=== PATIENT | male | born 1965 | race Caucasian/White ===

== ENCOUNTER 2019-04-15 18:46 | Emergency (ER) | payer MEDICAID, SELFPAY ==
[2019-04-15 18:47] VITALS: BP 134/79; PULSE 65; RESP 15; TEMP 36.8; O2SAT 97; BMI 35.2
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
--- NOTE | 2019-04-15 19:45 | RAD_ITS ---
STUDY: X-RAY - LUMBAR SPINE REASON FOR EXAM: Male, 54 years old. Back pain TECHNIQUE: 3 view(s) of the lumbar spine were obtained. COMPARISON: None FINDINGS: There is no evidence of fracture or dislocation in the lumbar spine. The vertebral body heights and disc spaces are well-maintained. Mild multilevel osteophytosis is present. RAD/Lumbar Spine 2 or 3 Views IMPRESSION: No fracture or dislocation in the lumbar spine. Mild multilevel osteophytosis. Electronically Signed: Oswaldo Ace, at 20:04 EDT Tel , Service support ,
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
[2019-04-15 21:00] VITALS: BP 139/76; PULSE 81; RESP 22; O2SAT 98
--- NOTE | 2019-04-15 21:01 | ED.RN ---
THIS NURSE REVIEWED D/C INSTRUCTIONS WITH PT. PT VERBALIZED UNDERSTANDING OF INSTRUCTIONS. PT DENIES FURTHER NEEDS OR QUESTIONS AT THIS TIME. PT AMBULATES FROM ROOM ON OWN WITHOUT ASSISTANCE FROM STAFF
== END 2019-04-15 21:02 | disposition home or self-care (01) ==
PROVIDERS: Emergency Provider Emergency Medicine; Family Provider Pediatrics; PCP Pediatrics
DX: S29.012A Strain of muscle and tendon of back wall of thorax, initial encounter (principal); S39.012A Strain of muscle, fascia and tendon of lower back, initial encounter; V43.52XA Car driver injured in collision with other type car in traffic accident, initial encounter; Y93.89 Activity, other specified; Y92.9 Unspecified place or not applicable; M62.830 Muscle spasm of back
CPT/HCPCS: 72070; 72100; 99282

== ENCOUNTER 2019-10-18 09:00 | Outpatient (RCR) | payer MEDICAID, SELFPAY ==
--- NOTE | 2019-08-18 12:21 | HP.PTEVAL ---
Patient's Visit Information MARCI BARR Jr. is a 54 year old M referred to Physical Therapy by COLTON MAYBERRY with a diagnosis of SPONDYLOSIS OF CERVICAL SPINE. Date of Evaluation: 08/18/19 Physical Therapist: Charbel Pena, PT, Cert MDT, OCS - Visit Plan Frequency: 2x /Week Duration: 4 Weeks Plan: PT INTERVENTIONS WITH AQUATIC PT FOR CERVICAL ROM/POSTURAL EX'S,STRENGTHENING. THEN RECHECK AFTER 3WEEKS - Subjective Findings: This 54 y/o male presents to physical therapy with cervical pain with radicular symptoms left arm.Patient has neck pain for several . Patient has been getting therapy at [facility] ,patient return to DR Braxton. wanted to try PT. Patient does workout at a facility. Patient has parathesia/tingling to 4-5th finger/thumb with pain located to shoulder and UT. Patient symptoms are intermmitant. Aggravating factors driving,sitting,,lifting,flexion. Alleviating factors ibuprofrin. Patient has occassional TOVAR ,denies tinntus/nausea/. Patient symptoms affects sleeping. Patient has no trauma. Patient MRI showed stenosis foraminal. Patient pain affects ADLS' ,housework tasks and job demands. Patient symptoms affects QOL. SOCAIL : single. VOCATION: sales - Pain Left Neck Pain Intensity (Out of 10): 8 Pain Intensity Range: 10 Left Scapula Pain Intensity (Out of 10): 0 Pain Intensity Range: 10 Left Shoulder Pain Intensity (Out of 10): 7 Pain Intensity Range: 10 - Objective POSTURE: mild foward posture. NEURO: c/o parathesia/tingling,left arm reflexes 2/3 C5-6-7 ,mytomes C5. PALAPTION: UT/levator. AROM: BUE WFL ,pain left shoulder. MMT: 4-/5 shoulders ,biceps/triceps/wrist 4/5. 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 Goal Time Frame: 2-4 Weeks Goal 3:: Patient to increase cervical ROM for function of recovery Goal Time Frame: 2-4 Weeks Goal 4:: Patient be d/c to prophalaxis Goal Time Frame: 2-4 Weeks Goal 5:: Patient to improve neck owestry score by 5 points or > to improve QOL. 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 Rehabilitation Potential: Good - Anticipated Interventions Patient/Client Instruction: Educate patient on: Condition, Plan of Care For the Purpose of:: To decrease pain, To increase ROM, To improve muscle performance and motor function, To increase tolerance to activity/condition/position, To improve ability of physical actions for home/community/work/leisure, To improve health of tissue, To decrease soft tissue restriction, To increase flexibility/ROM, To improve ability to perform tasks related to life management Therapeutic Exercise to Include: Strength training, Postural training, Flexibilty training, In an aquatic setting, Active ROM Comment: BUE For the Purpose of:: To decrease pain, To increase ROM, To improve muscle performance and motor function, To improve ability to perform ADL's, To increase tolerance to activity/condition/position, To improve ability of physical actions for home/community/work/leisure, To improve health of tissue, To decrease soft tissue restriction, To increase flexibility/ROM Thank you for the opportunity to evaluate your patient. For Medicare and Medicare HMO plans, please review the plan of care and approve it. It will need to be FAXED BACK to us at [phone] for Medicare purposes. For Medicare only, by signing this I certify the plan of care. Please let me know if there are questions or concerns regarding this plan of care. Physician Signature: Date:
--- NOTE | 2019-09-23 10:16 | HP.PTREVAL ---
COLTON MAYBERRY, It has been my pleasure to treat MARCI BARR Jr. over the last 8 visits for SPONDYLOSIS OF CERVICAL SPINE. Please see the progress note below for an update on the physical therapy plan of care! Subjective: Received order for cervical for land. Patient states pain same Objective/Function: POSTURE: mild foward posture. MMT:4/5. CERVICAL ROM: FLEXION MIN LOSS,EXTENSION MOD/SEVERE AND LATERAL FLEXION MOD/SEVER LOSS,ROTATION MOD LOSS Plan Plan: PT INTERVENTION MANUAL THERAY STM/MANUAL TRACTION,US,ICTX 15-23# X15 MIN ,CERVICAL /POSTURAL EXS Goals Goal 1:: Independant with HEP Goal Time Frame: 2-4 Weeks Goal 2:: Patient decrease cervical pain and radicular symptosm by 40% or > to improve function. Goal Time Frame: 2-4 Weeks Goal 3:: Patient to increase cervical ROM for function of recovery Goal Time Frame: 2-4 Weeks Goal 4:: Patient be d/c to prophalaxis Goal Time Frame: 2-4 Weeks Goal 5:: Patient to improve neck owestry score by 5 points or > to improve QOL. Goal Time Frame: 2-4 Weeks Anticipated Interventions Patient/Client Instruction: Educate patient on: Condition, Plan of Care For the Purpose of:: To decrease pain, To increase ROM, To improve muscle performance and motor function, To increase tolerance to activity/condition/position, To improve ability of physical actions for home/community/work/leisure, To improve health of tissue, To decrease soft tissue restriction, To increase flexibility/ROM, To improve ability to perform tasks related to life management Therapeutic Exercise to Include: Strength training, Postural training, Flexibilty training, In an aquatic setting, Active ROM Comment: DURAN GARCIA For the Purpose of:: To decrease pain, To increase ROM, To improve muscle performance and motor function, To improve ability to perform ADL's, To increase tolerance to activity/condition/position, To improve ability of physical actions for home/community/work/leisure, To improve health of tissue, To decrease soft tissue restriction, To increase flexibility/ROM, To improve ability to perform tasks related to life management Manual Therapy Techniques to Include: Mobilization, Soft tissue mobilization Comment: CERVICAL /MANUAL TRACTION For the Purpose of:: To decrease pain, To increase ROM, To improve nutrient delivery to tissue, To improve muscle performance and motor function, To improve health of tissue, To decrease soft tissue restriction TENS: Yes IF ES: Yes Ultrasound (thermal/non thermal): Yes Intermittent cervical traction: Yes For the Purpose of:: To decrease pain, To increase ROM, To improve health of tissue, To decrease soft tissue restriction Please do not hesitate to contact me at [phone] by phone or if you have questions or concerns regarding this new plan of care! Sincerely, Charbel Pena, PT, Cert MDT, OCS
--- NOTE | 2020-01-06 09:26 | HP.PT.NRP ---
MARCI BARR Jr. was seen in my office for initial evaluation on 08/18/19. The following Plan of Care was established for this patient: Initial Frequency: 2x /Week Initial Duration: 4 Weeks Patient/Client Instruction: Educate patient on: Condition, Plan of Care For the Purpose of:: To decrease pain, To increase ROM, To improve muscle performance and motor function, To increase tolerance to activity/condition/position, To improve ability of physical actions for home/community/work/leisure, To improve health of tissue, To decrease soft tissue restriction, To increase flexibility/ROM, To improve ability to perform tasks related to life management Therapeutic Exercise to Include: Strength training, Postural training, Flexibilty training, In an aquatic setting, Active ROM For the Purpose of:: To decrease pain, To increase ROM, To improve muscle performance and motor function, To improve ability to perform ADL's, To increase tolerance to activity/condition/position, To improve ability of physical actions for home/community/work/leisure, To improve health of tissue, To decrease soft tissue restriction, To increase flexibility/ROM, To improve ability to perform tasks related to life management Manual Therapy Techniques to Include: Mobilization, Soft tissue mobilization Comment: CERVICAL /MANUAL TRACTION For the Purpose of:: To decrease pain, To increase ROM, To improve nutrient delivery to tissue, To improve muscle performance and motor function, To improve health of tissue, To decrease soft tissue restriction TENS: Yes IF ES: Yes Ultrasound (thermal/non thermal): Yes Intermittent cervical traction: Yes For the Purpose of:: To decrease pain, To increase ROM, To improve health of tissue, To decrease soft tissue restriction This patient was last seen in our office 10/18/19. Pertinent comments regarding their Physical therapy will appear below: Patient seen for neck pain intailly aquatic therapy then did Ictx with + response with less pain in cervical and arm. At this point I will be discontinuing this patient from physical therapy. I would be happy to see this patient again in the future if found appropriate by the physician. Thank you! Charbel Pena, PT, Cert MDT, OCS
== END 2019-10-18 19:00 | disposition home or self-care (01) ==
LOC: PT 09:00
PROVIDERS: Family Provider Family Medicine; PCP Family Medicine
DX: M43.02 Spondylolysis, cervical region (principal)
CPT/HCPCS: 97012; 97110; 97113; 97140; 97162; 97530

== ENCOUNTER 2021-01-03 15:47 | Outpatient (RCR) | payer MEDICAID, SELFPAY ==
[2021-01-03] MEDS: COVID-19 VACC, MRNA(PFIZER)/PF 30 MCG/0.3 ML SYRINGE IM (14:05)
[2021-01-24] MEDS: COVID-19 VACC, MRNA(PFIZER)/PF 30 MCG/0.3 ML SYRINGE IM (13:52)
== END 2021-01-03 23:59 ==
LOC: IMMUN 15:47
PROVIDERS: PCP Family Medicine; Visit Provider Family Medicine
DX: Z23 Encounter for immunization (principal)
CPT/HCPCS: 0001A; 0002A; 91300

== ENCOUNTER → 2021-09-09 18:39 | Outpatient (CLI) | payer MEDICAID, SELFPAY ==
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
== END ==
PROVIDERS: PCP Family Medicine; Visit Provider Family Medicine
DX: Z12.2 Encounter for screening for malignant neoplasm of respiratory organs (principal); Z87.891 Personal history of nicotine dependence
CPT/HCPCS: 71271

== ENCOUNTER 2024-06-01 07:30 | Emergency (ER) | payer MEDICAID, SELFPAY ==
[2024-06-01 07:31] VITALS: BP 192/91; PULSE 67; RESP 19; TEMP 35.9; O2SAT 99; BMI 39.8
--- NOTE | 2024-06-01 07:59 | EX.ED.DYSGE1 ---
HPI History of Present Illness Chief Complaint: Abd Pain PFSH PFSH Home Medications ?Medication ?Instructions ?Recorded ?Last Taken ?Type cyclobenzaprine 10 mg tablet 10 mg PO TID PRN Muscle Spasm #20 04/15/19 Unknown Rx tabs naproxen 500 mg tablet 500 mg PO BID PRN PRN Pain #20 tabs 04/15/19 Unknown Rx ondansetron 4 mg disintegrating 4 mg PO Q8H PRN PRN Nausea #10 tabs 06/01/24 Unknown Rx tablet oxycodone 5 mg tablet 5 mg PO Q6H PRN pain 3 days #12 06/01/24 Unknown Rx tabs Allergy/AdvReac Type Severity Reaction Status Date / Time No Known Allergies Allergy Verified 06/16/19 15:31 Social History (System 06/16/19 @ 15:31 by Rosa Alegre) Smoking Status: Former smoker EXAM Physical Exam Const Vital Signs: 06/01/24 07:31 06/01/24 09:46 06/01/24 11:00 Temperature 96.7 F L 97.8 F Temperature Source Temporal Temporal Pulse Rate 67 72 79 Respiratory Rate 19 H 18 18 Blood Pressure 192/91 H 173/79 H 147/78 H Blood Pressure Mean 124 110 101 Pulse Ox 99 97 98 Oxygen Delivery Method Room Air Room Air Room Air MDM MDM MDM Narrative Medical decision making narrative: HISTORY OF PRESENT ILLNESS: 59-year-old male presents abdominal pain that began last night. Denies associated nausea vomiting or diarrhea. The patient further states pain was sudden onset. Prevented her from sleeping. Is located over the right mid abdomen. No history of abdominal surgeries. Denies any abdominal distention. Denies any vomiting. Denies chest pain or shortness of breath. Denies focal numbness weakness or loss sensation. Denies family or personal history of aneurysms or connective tissue diseases. 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 Denies any recent drug use. REVIEW OF SYSTEMS: Pertinent positives: Abdominal pain Pertinent negatives: Nausea vomiting diarrhea PHYSICAL EXAM: Nursing triage notes reviewed, Vital signs reviewed Constitutional: please see mdm HENT: MMM Eyes: Pupils equal round and reactive to light, Extraocular muscles intact Neck: No stridor, no JVD, full neck ROM Lungs: Clear to auscultation, No wheezing or rales. No increased work of breathing, no conversational dyspnea, no accessory muscle use, no nasal flaring. No respiratory distress noted Heart: Regular rate and rhythm, No murmurs, No rubs and No gallops, 2+ distal pulses (radial, femoral, posterior tibial) in all extremities Abdomen: Soft, there is right sided abdominal tenderness, rigidity, rebound or guarding, no obvious peritoneal signs, no palpable pulsatile abdominal masses, no auscultated abdominal bruit : No CVAT Extremities: No edema Neuro: No focal neurological deficits, cranial nerves II through XII intact, 5/5 strength in all extremities. Intact sensation to light touch in all extremities, 2+ reflexes bilateral patella tendons. Normal gait. No ataxia. Skin: No rash or lesions noted MEDICAL DECISION MAKING: Chief Complaint: Abdominal pain External records reviewed: No recent advanced imaging of the abdomen or pelvis noted. Reviewed clinic sync noted echocardiogram from December 2013 showed ejection fraction 60%, no cardiomyopathy. Factors affecting care: none reported in [employer] Social determinants of health: Recovered alcoholic, drug addiction admission, ex-smoker History obtained from others: none Consults: none at this time MDM Narrative: Patient was initially hypertensive with blood pressure 192/91 otherwise afebrile and nontoxic-appearing. Patient was initially diaphoretic and appeared uncomfortable. Abdominal exam with distended abdomen but no obvious pulsatile abdominal masses or auscultated bruits. I considered the following differential diagnosis: AAA, small bowel obstruction, abdominal perforation, appendicitis, pancreatitis, hepatobiliary pathology (acute cholecystitis), mesenteric ischemia, pathology (ie nephrolithiasis, pyelonephritis). I obtained a broad lab and imaging workup to further elucidate the etiology of patient complaint. Gave the patient 1 L of normal saline for initial resuscitation, 4 mg IV Zofran and 4 mg IV morphine for initial symptomatic control. Given diaphoresis and overall poor initial appearance added troponin and EKG to rule out ACS or arrhythmia. ALL IMAGES (IF OBTAINED) HAVE BEEN PERSONALLY REVIEWED AND INTERPRETED BY MYSELF. CBC without leukocytosis, severe anemia, no thrombocytopenia. EKG with normal sinus rhythm, left axis deviation, right bundle branch block, for screen AV block, no STEMI Lactate is wnl indicating no end-organ hypoperfusion and/or hypoxia. Dark bilirubin within normal limits High-sensitivity troponin is negative, no evidence of myocardial ischemia BMP without significant electrolyte disturbances, no signs of metabolic acidosis within normal bicarb 27, no signs of endorgan hypoperfusion with normal anion gap, noted mild renal insufficiency (no prior for comparison) Lactate is wnl indicating no end-organ hypoperfusion and/or hypoxia. CT scan of the abdomen pelvis was personally read reviewed myself shows evidence of a right calculus just proximal to the UVJ measuring approximate 4 to 5 mm. Awaiting radiologist read who agrees to my interpretation. Urinalysis shows no evidence of urinary inflammation suggestive of UTI Patient was reassessed after 2 dose of IV morphine and Zofran and fluids. He felt much more comfortable. Blood pressure improved to 147/78. Patient had no nausea or vomiting. Patient felt comfortable to go home with oral pain medicine, Zofran and strict return precautions. He understood risk and benefits of discharge versus admission at this time and chose to be discharged. Encourage increase fluid intake. The patient and/or family, caregivers express understanding. The patient and/or family, caregivers agrees with the plan. Shared decision making: I will have a discussion with the patient and or visitors regarding risk/benefits of further testing or admission. They will be made aware of of the risk/benefits inherent in this decision they will be given the opportunity to voice understanding. Total critical care time today provided was at least 0 minutes. This excludes separately billable procedures. Critical care time (if documented) is secondary to the patient having high probability of clinically significant/life threatening deterioration in the patient's condition which required my urgent intervention. Impression: 1. Abdominal pain 2. Elevated blood-pressure reading 3. Renal insufficiency 4. Nephrolithiasis 5. Hydronephrosis Dispo: Discharge home This note was generated with [employer] dictation software. It may contain incorrect words, spelling, and punctuation that were not noted in review of the chart prior to signing. Lab Data Labs: Laboratory Results - last 24 hr 06/01/24 06/01/24 06/01/24 07:50 08:10 08:54 WBC 8.4 RBC 4.71 Hgb 14.4 Hct 43.0 MCV 91.3 MCH 30.6 MCHC 33.5 RDW Std Deviation 42.1 RDW Coeff of Marck 12.6 Plt Count 211 MPV 9.4 Immature Gran % (Auto) 0.400 Neut % (Auto) 58.2 Lymph % (Auto) 30.0 [place] % (Auto) 8.4 Eos % (Auto) 2.1 Baso % (Auto) 0.9 Absolute Neuts (auto) 4.9 Absolute Lymphs (auto) 2.53 Nucleated RBC % 0 Sodium 143 Potassium 4.0 Chloride 111 H Carbon Dioxide 27.0 Anion Gap 5 BUN 19 H Creatinine 1.41 H Estim Creat Clear Calc 80.93 Est GFR (MDRD) Af Amer 66 Est GFR (MDRD) Non-Af 55 L BUN/Creatinine Ratio 13.5 Glucose 126 H Lactic Acid 1.7 Calcium 8.5 Total Bilirubin 0.20 Direct Bilirubin 0.06 AST 24 ALT 39 Alkaline Phosphatase 80 Troponin I High Sens 5 Total Protein 6.6 Albumin 3.3 Globulin 3.3 Albumin/Globulin Ratio 1.0 Urine Color Yellow Urine Clarity Clear Urine pH 6.0 Ur Specific [place] 1.030 Urine Protein 15 H Urine Glucose (UA) Normal Urine Ketones Negative Urine Occult Blood 10 H Urine Nitrite Negative Urine Bilirubin Negative Urine Urobilinogen Normal Ur Leukocyte Esterase Negative Urine RBC 0-5 SEEN Urine WBC 0-5 SEEN Ur Squamous Epith Cells 0 SEEN Urine Bacteria 1+ Urine Mucus 1+ Radiography Diagnostic Testing: Clinical Impression(s) from Imaging Studies Abdomen/Pelvis CT 06/01/24 08:00 IMPRESSION: 6 mm stone in the right distal ureter with moderate right hydroureteronephrosis and a delayed program in the right kidney. 3 mm nonobstructing left renal collecting system stone. No ureteral stones. No left-sided hydronephrosis. No bowel obstruction or inflammation. Normal appendix. Fatty liver. Electronically Signed: Sravan Watkins MD at 9:52 EDT Reading Location ID and State: [facility] / [place] Tel , Service support , Discharge Plan Triage Chief Complaint: Abd Pain ED Provider: Giovanny Marin Dx/Rx/DC Orders Instructions: ED Kidney Stone with Pain Prescriptions: New oxycodone 5 mg tablet 5 mg PO Q6H PRN (Reason: pain) 3 Days Qty: 12 0RF ondansetron 4 mg tablet,disintegrating 4 mg PO Q8H PRN PRN (Reason: Nausea) Qty: 10 0RF No Action naproxen 500 MG tablet 500 mg PO BID PRN PRN (Reason: Pain) Qty: 20 0RF cyclobenzaprine 10 MG tablet 10 mg PO TID PRN (Reason: Muscle Spasm) Qty: 20 0RF Primary Care Provider: Oswaldo Jacobsen Referrals: Oswaldo Jacobsen MD [Primary Care Provider] - Activity Restrictions/Additional Instructions: Thank you for trusting us with your care today! Please take Tylenol (2 pills, 650 mg), ibuprofen (2 pills, 400 mg) every 6 hours as needed for pain and fever control. If the above regimen does not control your pain please take oral oxycodone as needed for breakthrough pain. Please take Zofran as needed for nausea. Please return to the emergency department if your symptoms change or worsen. Specifically develop severe pain that is not controlled by the above regimen. If develop vomiting, fever, decreased urination or painful urination with blood in your urine. Please follow with your primary care physician for further outpatient evaluation and management. Print Language: Kinyarwanda Disposition Disposition: Home, Self Care
--- NOTE | 2024-06-01 08:00 | CT_ITS ---
STUDY: CT ABDOMEN AND PELVIS WITH CONTRAST REASON FOR EXAM: Male, 59 years old. Abdominal pain. Nausea and vomiting. RADIATION DOSAGE (If Supplied By Facility): CTDIvol = ( 18.70 ) mGy, DLP = ( 1357.01 ) mGycm TECHNIQUE: Transaxial images were obtained through the abdomen and pelvis without oral contrast. 100 ml of Isovue-370 contrast was administered. Sagittal and coronal images were reconstructed. Individualized dose optimization techniques were used for this CT. CT scan performed according to ALARA principles. Automated exposure control used during exam. COMPARISON: No relevant prior comparison study available FINDINGS: LOWER THORAX: There is atelectasis at the lung bases. The visualized portions of the heart and pericardium are within normal limits. GALLBLADDER / BILE DUCTS: There are no calcified gallstones present. There is no intrahepatic biliary duct dilatation. The common bile duct is normal in caliber. There are no calcified ductal stones. LIVER: The liver is low in density, consistent with fatty infiltration. SPLEEN: The spleen is normal in size. PANCREAS: The pancreas is within normal limits. ADRENAL GLANDS: The adrenal glands are within normal limits. KIDNEYS / BLADDER: There is a 6 mm stone in the right distal ureter with moderate right hydroureteronephrosis and a delayed nephrogram in the right kidney. There is a 3 mm nonobstructing left renal collecting system stone. There are no left ureteral stones. There is no left hydronephrosis. There are no focal renal lesions. The urinary bladder is partially distended and appears grossly unremarkable. STOMACH / BOWEL: Normal visualized stomach. There is no bowel obstruction or inflammation. The appendix is visualized and appears normal. PERITONEUM/RETROPERITONEUM: There is no abdominal or pelvic free air, free fluid or fluid collection. There is no abnormal soft tissue mass identified. There is no abdominal or pelvic lymphadenopathy. VESSELS: The aorta is normal in caliber. The IVC is unremarkable. BONES: There are no destructive osseous lesions. SOFT TISSUES: The visualized soft tissues are within normal limits. CT/Abdomen/Pelvis W IV Cont ONLY IMPRESSION: 6 mm stone in the right distal ureter with moderate right hydroureteronephrosis and a delayed program in the right kidney. 3 mm nonobstructing left renal collecting system stone. No ureteral stones. No left-sided hydronephrosis. No bowel obstruction or inflammation. Normal appendix. Fatty liver. Electronically Signed: Sravan Watkins MD at 9:52 EDT ,
[2024-06-01] MEDS: 0.9% Normal Saline (1000mL) 1,000 ML 999 ML IV ×2 (08:15→09:44)
[2024-06-01] MEDS: Morphine 4 MG/ML Syringe IV ×3 (08:15→11:39)
[2024-06-01] MEDS: Ondansetron 4 MG/2 ML Vial IV (08:15)
[2024-06-01 08:16] LABS: Absolute Lymphocyte Count 2.53 X10^3/uL (0.83-4.51); Absolute Neutrophil Count 4.9 X10^3/uL (2.0-7.7); Basophil# 0.08 X10^3/uL; Basophil% 0.9 % (0-1); Eosinophil# 0.18 X10^3/uL; Eosinophils% 2.1 % (0-5); Hemoglobin 14.4 g/dL (13.0-16.5); Lymphocyte # 2.53 X10^3/ul (0.83-4.51); Mean Corp Hgb Conc 33.5 g/dL (32-36); Mean Corpuscular Hgb 30.6 pg (27.0-32.0); Mean Corpuscular Volume 91.3 fL (80-94); Mean Platelet Vol. 9.4 fl (6.2-12.0); Monocyte# 0.71 X10^3/uL; Monocyte% 8.4 % (0-10); NRBC Flagged by Analyzer 0 % (0-5); Neutrophil % 58.2 % (47-70); Platelet Count 211 K/mm3 (150-450); RBC Distribution Width CV 12.6 % (11.6-14.6); RBC Distribution Width SD 42.1 fl (35.1-43.9); Red Blood Count 4.71 M/mm3 (4.6-6.2); White Blood Count 8.4 K/mm3 (4.4-11.0)
[2024-06-01 08:29] LABS: AST(SGOT) 24 U/L (15-37); Alanine Aminotransfer ALT/SGPT 39 U/L (16-61); Albumin, Serum 3.3 g/dL (3.2-5.0); Alkaline Phosphatase 80 U/L (45-117); Anion Gap 5 (5-15); BUN 19 mg/dL (7-18); BUN/Creat Ratio 13.5 RATIO (10-20); Bilirubin, Direct 0.06 mg/dL (0.00-0.30); Calcium,Total 8.5 mg/dL (8.5-10.1); Chloride 111 mmol/L (98-107); Creatinine, Serum 1.41 mg/dL (0.70-1.30); EST Glomerular Filtration Rate 55 mL/min (>60); Est Glom Filt Rate - Afr Amer 66 mL/min (>60); Estimated Creatinine Clearance 80.93 ml/min; Globulin 3.3 g/dL (2.2-4.2); Glucose 126 mg/dL (74-106); Protein, Total 6.6 g/dL (6.4-8.2); Sodium Level 143 mmol/L (136-145)
[2024-06-01 08:40] LABS: Lactic Acid 1.7 mmol/L (0.4-1.9)
[2024-06-01 08:41] LABS: Troponin-I HS 5 pg/mL (3.0-78.0)
[2024-06-01 09:00] LABS: Squamous Epithelial Cells - UA 0 SEEN /hpf (0-5)
[2024-06-01 09:02] LABS: Color, Urine Yellow (Yellow); Glucose, Dipstick Normal (Normal); Ketone-Dipstick Negative (Negative); Leukocyte Esterase-Dipstick Negative /ul (Negative); Nitrite-Dipstick Negative (Negative); Occult Blood-Urine 10 /ul (Negative); Protein-Dipstick 15 mg/dl (Negative); Urine Bilirubin Dipstick Negative (Negative); Urine Clarity Clear (Clear); Urine Urobilinogen Normal (Normal)
[2024-06-01 09:28] LABS: Bacteria 1+ /hpf (None Seen); Mucous, Urine 1+ /hpf (<or=2+); Red Blood Cells-Urine 0-5 SEEN /hpf (0-5); White Blood Cells 0-5 SEEN /hpf (0-5)
[2024-06-01] MEDS: Ketorolac 15 MG/ML Vial IV (09:44)
[2024-06-01 09:46] VITALS: BP 173/79; PULSE 72; RESP 18; TEMP 36.6; O2SAT 97
[2024-06-01 11:00] VITALS: BP 147/78; PULSE 79; RESP 18; O2SAT 98
[2024-06-01 11:42] VITALS: BP 139/73; PULSE 81; RESP 18; TEMP 36.7; O2SAT 100
== END 2024-06-01 12:07 | disposition home or self-care (01) ==
PROVIDERS: Emergency Provider Emergency Medicine; PCP Family Medicine; Visit Provider Emergency Medicine
DX: R10.9 Unspecified abdominal pain (principal); R03.0 Elevated blood-pressure reading, without diagnosis of hypertension; N13.2 Hydronephrosis with renal and ureteral calculous obstruction; Z87.891 Personal history of nicotine dependence
CPT/HCPCS: 74177; 80053; 81001; 82248; 83605; 84484; 85025; 93005; 96361; 96374; 96375; 96376; 99283; J7030; Q9967; A4216; J2405

== ENCOUNTER 2024-07-10 21:39 | Emergency (ER) | payer MEDICAID, SELFPAY ==
[2024-07-10 21:40] VITALS: BP 200/95; PULSE 83; RESP 16; TEMP 37.1; O2SAT 98; BMI 40.1
--- NOTE | 2024-07-10 21:57 | CT_ITS ---
STUDY: CT ABDOMEN AND PELVIS WITHOUT CONTRAST REASON FOR EXAM: Male, 59 years old. Kidney Stone -- right flank RADIATION DOSAGE (If Supplied By Facility): CTDIvol = ( 23.07 ) mGy, DLP = ( 1262.28 ) mGycm TECHNIQUE: Transaxial images were obtained from the dome of the diaphragm to the symphysis pubis without oral contrast, and without intravenous contrast. Sagittal and coronal images were reconstructed. Individualized dose optimization techniques were used for this CT. COMPARISON: 06/01/2024 FINDINGS: The visualized lung bases are unremarkable. The visualized portions of the heart are within normal limits. There is decreased attenuation of the liver consistent with steatosis. Normal gallbladder and extrahepatic biliary system. Normal spleen. Normal pancreas. Normal bilateral adrenal glands. 5 mm obstructing stone at right ureterovesical junction with moderate ureteral dilatation, hydronephrosis, and perinephric edema. 3 mm nonobstructing stone lower pole left kidney. Normal visualized stomach. Normal small intestine. Normal colon. The appendix is visualized and appears normal. Normal abdominal aorta. Normal inferior vena cava. Normal retroperitoneum. Normal urinary bladder. There is a small umbilical hernia containing fat. Normal osseous structures. CT/Abdomen/Pelvis without Cont IMPRESSION: 5 mm obstructing stone at right ureterovesical junction with moderate ureteral dilatation, hydronephrosis, and perinephric edema. Electronically Signed: Gerson Metzger MD at 23:19 EDT ,
[2024-07-10] MEDS: Ondansetron 4 MG/2 ML Vial IV (22:08)
[2024-07-10] MEDS: Ketorolac 15 MG/ML Vial IV ×2 (22:08→22:43)
[2024-07-10] MEDS: 0.9% Normal Saline (1000mL) 1,000 ML 250 ML IV (22:09)
[2024-07-10 22:10] LABS: Absolute Lymphocyte Count 2.76 X10^3/uL (0.83-4.51); Absolute Neutrophil Count 7.2 X10^3/uL (2.0-7.7); Basophil# 0.08 X10^3/uL; Basophil% 0.7 % (0-1); Eosinophil# 0.17 X10^3/uL; Eosinophils% 1.5 % (0-5); Hematocrit 42.5 % (40-54); Hemoglobin 14.2 g/dL (13.0-16.5); Lymphocyte # 2.76 X10^3/ul (0.83-4.51); Lymphocyte % 23.9 % (19-41); Mean Corp Hgb Conc 33.4 g/dL (32-36); Mean Corpuscular Volume 89.9 fL (80-94); Mean Platelet Vol. 9.2 fl (6.2-12.0); Monocyte# 1.29 X10^3/uL; Monocyte% 11.2 % (0-10); NRBC Flagged by Analyzer 0 % (0-5); Neutrophil # 7.24 X10^3/uL (2.7-7.7); Neutrophil % 62.5 % (47-70); Platelet Count 210 K/mm3 (150-450); RBC Distribution Width CV 12.7 % (11.6-14.6); RBC Distribution Width SD 42.2 fl (35.1-43.9); Red Blood Count 4.73 M/mm3 (4.6-6.2); White Blood Count 11.6 K/mm3 (4.4-11.0)
[2024-07-10 22:12] LABS: Mucous, Urine 0 SEEN /hpf (<or=2+); Squamous Epithelial Cells - UA 0 SEEN /hpf (0-5)
[2024-07-10 22:16] LABS: Color, Urine Yellow (Yellow); Glucose, Dipstick Normal (Normal); Ketone-Dipstick Negative (Negative); Leukocyte Esterase-Dipstick Negative /ul (Negative); Nitrite-Dipstick Negative (Negative); Occult Blood-Urine 50 /ul (Negative); Protein-Dipstick 15 mg/dl (Negative); Specific Gravity, Urine 1.025 (1.002-1.030); Urine Bilirubin Dipstick Negative (Negative); Urine Clarity Clear (Clear); Urine Urobilinogen Normal (Normal)
[2024-07-10 22:39] LABS: Bacteria RARE /hpf (None Seen); Red Blood Cells-Urine 5-10 SEEN /hpf (0-5); White Blood Cells 0-5 SEEN /hpf (0-5)
[2024-07-10 22:43] LABS: Anion Gap 6 (5-15); BUN 27 mg/dL (7-18); BUN/Creat Ratio 19.7 RATIO (10-20); Calcium,Total 9.2 mg/dL (8.5-10.1); Chloride 107 mmol/L (98-107); Creatinine, Serum 1.37 mg/dL (0.70-1.30); EST Glomerular Filtration Rate 56 mL/min (>60); Est Glom Filt Rate - Afr Amer 68 mL/min (>60); Estimated Creatinine Clearance 83.62 ml/min; Glucose 105 mg/dL (74-106); Sodium Level 141 mmol/L (136-145)
[2024-07-10] MEDS: Morphine 4 MG/ML Syringe IV (22:43)
--- NOTE | 2024-07-10 23:12 | EX.ED.DYSGE1 ---
HPI History of Present Illness Chief Complaint: Flank Pain Detail of Chief Complaint: Acute right-sided abdominal pain with radiation to the right lower quadrant Informant: patient Onset/Context/Timing Onset: Today and Hours Context: Sudden Onset Timing: Continuous and Waxes and wanes Quality: Fluctuating pain Location: Right side anterior to the kidney Current Severity: Moderate Maximum Severity: Severe Worsened by: Nothing Relieved by: Nothing Associated Symptoms Associated Symptoms: Frequency, urgency and slight dysuria Narrative Narrative: Patient is a 59-year-old male. He was seen recently here and diagnosed with a ureteral stone. He presents because of abrupt onset of pain that is anterior the right kidney radiating inferiorly. He does report mild dysuria. He also endorses frequency and urgency. Is not noted any blood. He denies scrotal or testicular pain. He denies fever, chills night sweats. He denies vomiting or diarrhea. He denies direct or indirect trauma. He denies rash. Patient had a CAT scan during that visit which revealed a 6 mm renal calculus and a 3 mm left calculus. Prior similar symptoms: Yes Recent Illness/Hospitalization: Yes [facility] Medical History (Updated 07/10/24 @ 23:[address] Yg Chapa MD) Bilateral kidney stones Medical History no medical history Home Medications ?Medication ?Instructions ?Recorded ?Last Taken ?Type cyclobenzaprine 10 mg tablet 10 mg PO TID PRN Muscle Spasm #20 04/15/19 Unknown Rx tabs oxycodone-acetaminophen 5 mg-325 1 tab PO Q6H PRN PRN pain 5 days 07/10/24 Unknown Rx mg tablet #20 TABLETS Allergy/AdvReac Type Severity Reaction Status Date / Time Penicillins Allergy UNKOWN Verified 07/10/24 21:41 Social History Smoking Status: Former smoker ROS ROS ED Constitutional Constitutional ED: Denies chills, fever(s), subjective, sweats or weight loss Cardiovascular Cardiovascular: Denies chest pain or palpitations Respiratory/Chest Respiratory/Chest: Denies cough, dyspnea or dyspnea on exertion Gastrointestinal Gastrointestinal: Reports abdominal pain and nausea; Denies constipation, diarrhea, melena or vomiting Genitourinary Genitourinary ED: Reports dysuria and urinary frequency; Denies hematuria Musculoskeletal Musculoskeletal: Denies arthralgias, back pain, myalgias or neck pain Integumentary Denies rash Neurologic Neurologic: Denies headache(s) Hematologic/Lymphatic Hematologic/Lymphatic: Reports systems reviewed and no addt'l complaints, except as documented EXAM Physical Exam Const Vital Signs: 07/10/24 21:40 Temperature 98.7 F Temperature Source Oral Pulse Rate 83 Respiratory Rate 16 Blood Pressure 200/95 H Blood Pressure Mean 130 Pulse Ox 98 Oxygen Delivery Method Room Air Positive well nourished and well developed General Appearance ED: well developed and NAD; Negative for cyanotic, diaphoretic or pallor HEENT Reports moist mucous membranes HEENT Narrative: Head is atraumatic no cephalic. Ears normal. Nares patent. Eyes PERRL and EOMs intact bilaterally General Eye ED: Negative for pale conjunctiva or scleral icterus Resp normal respiratory effort and clear to auscultation bilaterally Cardio regular rate, regular rhythm, S1 normal heart sound, S2 normal heart sound and no murmurs GI normal to inspection, nondistended, normoactive bowel sounds, non-tender, non-distended and no masses; Negative for hepatosplenomegaly Back/Spine no CVA tenderness Back/Spine Narrative: Inspection of the back is normal. Extremity normal to inspection Neuro oriented x3 and CN's II-XII intact bilaterally Sensorium / Orientation: alert Psych mental status grossly normal Skin no rashes or lesions noted, no wounds and skin turgor normal General Skin Exam: Negative for jaundice or pallor MDM MDM MDM Narrative Medical decision making narrative: Prior visit was noted. Prior scan was reviewed. Since patient complains of urinary symptoms will obtain CT of the abdomen and pelvis without contrast as well as white count, BMP to assess renal function electrolytes and UA to rule out infection. Lab Data Attestation: I reviewed the patient's lab results. Lab results narrative: White count slightly elevated 11.6 which is nonspecific. Basic metabolic panel reveals an elevated creatinine of 1.37. It was elevated prior visit. UA reveals hematuria microscopic. There is no evidence of infection. Labs: Laboratory Results - last 24 hr 07/10/24 07/10/24 21:50 22:00 WBC 11.6 H RBC 4.73 Hgb 14.2 Hct 42.5 MCV 89.9 MCH 30.0 MCHC 33.4 RDW Std Deviation 42.2 RDW Coeff of Marck 12.7 Plt Count 210 MPV 9.2 Immature Gran % (Auto) 0.200 Neut % (Auto) 62.5 Lymph % (Auto) 23.9 [place] % (Auto) 11.2 H Eos % (Auto) 1.5 Baso % (Auto) 0.7 Absolute Neuts (auto) 7.2 Absolute Lymphs (auto) 2.76 Nucleated RBC % 0 Sodium 141 Potassium 4.0 Chloride 107 Carbon Dioxide 28.0 Anion Gap 6 BUN 27 H Creatinine 1.37 H Estim Creat Clear Calc 83.62 Est GFR (MDRD) Af Amer 68 Est GFR (MDRD) Non-Af 56 L BUN/Creatinine Ratio 19.7 Glucose 105 Calcium 9.2 Urine Color Yellow Urine Clarity Clear Urine pH 6.0 Ur Specific [place] 1.025 Urine Protein 15 H Urine Glucose (UA) Normal Urine Ketones Negative Urine Occult Blood 50 H Urine Nitrite Negative Urine Bilirubin Negative Urine Urobilinogen Normal Ur Leukocyte Esterase Negative Urine RBC 5-10 SEEN Urine WBC 0-5 SEEN Ur Squamous Epith Cells 0 SEEN Urine Bacteria RARE Urine Mucus 0 SEEN Radiography Diagnostic Testing: Clinical Impression(s) from Imaging Studies Abdomen/Pelvis CT 07/10/24 21:57 IMPRESSION: 5 mm obstructing stone at right ureterovesical junction with moderate ureteral dilatation, hydronephrosis, and perinephric edema. Electronically Signed: Gerson Metzger MD at 23:19 EDT , CT of the abdomen without contrast reveals a distal 6 mm ureteral stone with perinephric stranding. Awaiting formal read by radiologist [id number]. There was a delay in patient receiving pain medicine. He was made aware of reason for this. Treatment and Re-Evaluation :: Patient was reassessed at 2243. Patient still having discomfort. He declined any additional pain medicine. He would like a prescription to go home with. This was written for. Discharge Plan Triage Chief Complaint: Flank Pain ED Provider: Yg Chapa Dx/Rx/DC Orders Clinical Impression: Hydronephrosis with urinary obstruction due to ureteral calculus, Calculus of left kidney, Elevated blood-pressure reading, without diagnosis of hypertension Instructions: ED Hypertension, To Be Confirmed, ED Kidney Stone with Pain Prescriptions: New oxycodone-acetaminophen 5-325 mg tablet 1 tab PO Q6H PRN PRN (Reason: pain) 5 Days Qty: 20 0RF No Action cyclobenzaprine 10 MG tablet 10 mg PO TID PRN (Reason: Muscle Spasm) Qty: 20 0RF Primary Care Provider: Oswaldo Jacobsen Referrals: Oswaldo Jacobsen MD [Primary Care Provider] - Elian Rodriguez MD [Med Staff - Active Staff] - 5-7 Days Print Language: Australian Disposition Disposition: Home, Self Care
[2024-07-11 00:05] VITALS: BP 138/81; PULSE 62; RESP 18; TEMP 36.8; O2SAT 100
== END 2024-07-11 00:06 | disposition home or self-care (01) ==
PROVIDERS: Emergency Provider Emergency Medicine; PCP Family Medicine; Visit Provider Emergency Medicine
DX: N13.2 Hydronephrosis with renal and ureteral calculous obstruction (principal); R03.0 Elevated blood-pressure reading, without diagnosis of hypertension; Z88.0 Allergy status to penicillin; Z87.891 Personal history of nicotine dependence
CPT/HCPCS: 74176; 80048; 81001; 85025; 96361; 96374; 96375; 96376; 99283; J7030; A4216; J2405

== ENCOUNTER 2025-06-25 10:36 | Emergency (ER) | payer MEDICAID, SELFPAY ==
[2025-06-25 10:37] VITALS: BP 182/94; PULSE 83; RESP 18; TEMP 36.8; O2SAT 98; BMI 38.9
--- NOTE | 2025-06-25 10:51 | CT_ITS ---
PROCEDURE: CHEST WITHOUT CONTRAST 06/25/2025 REASON FOR EXAM: CHEST WALL TRAUMA Blunt trauma to chest. TECHNIQUE: Chest CT without contrast. Coronal and Sagittal reconstruction series were provided. One or more dose reduction techniques were used (e.g., Automated exposure control, adjustment of the mA and/or kV according to patient size, use of iterative reconstruction technique RADIATION DOSE SUMMARY: CTDlvol: 20 mGy DLP: 879. mGycm COMPARISON: August 2021. FINDINGS: Thyroid gland: Negative. Lungs: Mild emphysematous changes. No pulmonary nodules or masses. Atelectasis in the left lung base. Pleura: Negative for pleural effusion or pneumothorax. Airways: Imaged bronchi and trachea otherwisenegative. Mediastinum: Negative for mediastinal mass. Lymph nodes: Negative for axillary, mediastinal or hilar adenopathy. Heart and Vasculature: Heart normal size. Negative for vascular calcifications of the thoracic aorta. Coronary Artery Calcifications: Negative for vascular calcifications of the coronary arteries Upper Abdomen: Mild fatty liver. Hardware: None. Bones: Degenerative disc disease particularly in the lower thoracic spine. Specifically no sternal fracture. No definitive rib fractures. No acute fractures of the thoracic spine. Otherwise age-appropriate degenerative changes of the thoracic spine. CT/Chest without Contrast IMPRESSION: Negative for acute cardiopulmonary disease. Negative for acute fracture of the ribs or chest. Reading Location: [id number]
[2025-06-25 10:52] VITALS: O2SAT 95
--- NOTE | 2025-06-25 10:52 | EKG12_ITS ---
Test Reason : CHEST OTHER Blood Pressure : */* mmHG Vent. Rate : 70 BPM Atrial Rate : 70 BPM P-R Int : 152 ms QRS Dur : 142 ms QT Int : 434 ms P-R-T Axes : 38 -25 34 degrees QTcB Int : 468 ms Normal sinus rhythm with sinus arrhythmia Right bundle branch block Abnormal ECG Confirmed by Sonny Pillai ([id number]), deputy editor in chief MELISSA GERONIMO ([id number]) on 06/26/2025 9:49:51 AM Referred By: Confirmed By: Sonny Pillai
--- NOTE | 2025-06-25 11:19 | EX.ED.GENINJ ---
HPI History of Present Illness Chief Complaint: Chest Other Informant: patient Narrative Narrative: Patient 60-year-old male with history of kidney stones presenting with chest pain after injury. Patient states he was in his normal state of health this morning. He was lifting weights (bench pressing with free weights) and was lifting 190 lbs. He states the bar got stuck on something and then fell onto his chest. He states that he tried to catch it but he could not overcome the momentum. He states this occurred approximate 15 minutes prior to arrival. He states it felt it, onto his chest. He has been having pain in the center of his chest since. Came in for further evaluation. Did not take any for symptoms prior to arrival. Denies any cardiac history. Denies feeling short of breath but notes it hurts when he breathes or moves around. Does have some mild nausea but attributes that to pain. No other complaints or concerns at this time [facility] Medical History Bilateral kidney stones Medical History no medical history Home Medications ?Medication ?Instructions ?Recorded ?Last Taken ?Type oxycodone-acetaminophen 5 mg-325 1 tab PO Q8H PRN pain 3 days #10 06/25/25 Unknown Rx mg tablet (Percocet) tabs Allergy/AdvReac Type Severity Reaction Status Date / Time Penicillins Allergy UNKOWN Verified 06/25/25 10:37 Family History no significant family his Surgical History no surgical history Social History Smoking Status: Former smoker ROS ROS ED Constitutional Constitutional ED: Denies chills or fever(s) Cardiovascular Cardiovascular: Reports chest pain Respiratory/Chest Respiratory/Chest: Denies cough or dyspnea Gastrointestinal Gastrointestinal: Reports nausea; Denies abdominal pain or vomiting Musculoskeletal Musculoskeletal: Denies arthralgias or myalgias Integumentary Denies rash Hematologic/Lymphatic Hematologic/Lymphatic: Denies easy bleeding or easy bruising EXAM Physical Exam Const Vital Signs: 06/25/25 10:37 06/25/25 10:52 06/25/25 10:55 Temperature 98.3 F Temperature Source Temporal Pulse Rate 83 Respiratory Rate 18 Respiratory Effort Short of Breath Blood Pressure 182/94 H Blood Pressure Mean 123 Pulse Ox 98 95 Oxygen Delivery Method Room Air Room Air 06/25/25 11:37 06/25/25 12:00 06/25/25 13:00 Temperature Temperature Source Pulse Rate 66 67 64 Respiratory Rate 21 H 23 H 17 Respiratory Effort Blood Pressure 130/83 H 132/93 H 119/64 Blood Pressure Mean 98 105 82 Pulse Ox 95 98 98 Oxygen Delivery Method Room Air Room Air 06/25/25 14:37 Temperature 98.4 F Temperature Source Pulse Rate 63 Respiratory Rate 22 H Respiratory Effort Blood Pressure 122/77 H Blood Pressure Mean 92 Pulse Ox 96 Oxygen Delivery Method Positive well nourished and well developed General Appearance ED: well developed and NAD HEENT atraumatic Chest Wall inspection of chest normal Chest Narrative: No chest wall crepitus. Mild tenderness palpation over the sternum. Resp normal respiratory effort and clear to auscultation bilaterally Cardio regular rhythm and no murmurs Rate: regular rate Extremity normal to inspection and full ROM Extremity Narrative: 2+ radial DP pulses Neuro oriented x3 and moves all extremities Sensorium / Orientation: alert Skin no rashes or lesions noted and no wounds MDM MDM MDM Narrative Medical decision making narrative: Patient evaluated for chest wall injury. Differential includes sternal fracture, rib fracture, pneumothorax (less likely as patient is 98% on room air and has bilateral breath sounds) and cardiac contusion. Will obtain workup. Patient given IV morphine and Zofran for symptoms. Patient continues to be sore in the emergency room. Thoracic trauma workup however is largely negative. No signs of acute fracture, pneumothorax or other acute process on his CT of the abdomen pelvis. CBC is normal. High-sensitivity troponin stable at 6 and 7. Low suspicion for cardiac contusion based on this. Patient maintain dynamically stable emergency room. Given a dose of oxycodone at time of discharge. We discharged home in a short course of Percocet for pain control. Given return precautions. Encouraged follow with primary care doctor. Discharged home in stable condition. Lab Data Attestation: I reviewed the patient's lab results. Labs: Laboratory Results - last 24 hr 06/25/25 06/25/25 11:10 13:18 WBC 8.6 RBC 4.79 Hgb 14.7 Hct 43.0 MCV 89.8 MCH 30.7 MCHC 34.2 RDW Std Deviation 42.2 RDW Coeff of Marck 12.8 Plt Count 209 MPV 8.9 Immature Gran % (Auto) 0.400 Neut % (Auto) 63.3 Lymph % (Auto) 26.8 Frederick % (Auto) 7.6 Eos % (Auto) 1.2 Baso % (Auto) 0.7 Absolute Neuts (auto) 5.4 Absolute Lymphs (auto) 2.29 Nucleated RBC % 0 Sodium 139 Potassium 4.1 Chloride 103 Carbon Dioxide 24.9 Anion Gap 11 BUN 14 Creatinine 1.01 Estim Creat Clear Calc 110.23 Est GFR (MDRD) Non-Af 85 BUN/Creatinine Ratio 14.2 Glucose 118 H Calcium 9.0 Troponin T High Sens 6 Troponin T Hi Sens 2 Hr 7 Radiography Diagnostic Testing: Clinical Impression(s) from Imaging Studies Chest CT 06/25/25 10:51 IMPRESSION: Negative for acute cardiopulmonary disease. Negative for acute fracture of the ribs or chest. Reading Location: [facility] Rhythm Strip Rhythm Strip: Sinus Rhythm Rate: 70 Ectopy: None EKG Initial EKG: Attestation: I personally reviewed and interpreted this EKG as follows: Interpretation: Sinus Rhythm Comments: Normal sinus rhythm with sinus arrhythmia at a rate of 70 bpm Normal axis Right bundle branch block Normal ST segment Prior EKG tracings: available for review Prior: Unchanged Discharge Plan Triage Chief Complaint: Chest Other ED Provider: Hanny Jurado Dx/Rx/DC Orders Clinical Impression: Chest wall contusion Instructions: ED Chest Wall Contusion Prescriptions: New oxycodone-acetaminophen [Percocet] 5-325 mg tablet 1 tab PO Q8H PRN (Reason: pain) 3 Days Qty: 10 0RF Primary Care Provider: Oswaldo Jacobsen Referrals: Oswaldo Jacobsen MD [Primary Care Provider] - Activity Restrictions/Additional Instructions: Take ibuprofen up to 600 mg every 6 hours to help with inflammation in your chest wall and pain. You been given a prescription for Percocet for breakthrough pain relief. Use the incentive spirometer while resting and awake couple times an hour to help prevent any pneumonia. If you have worsening symptoms, difficulty breathing or further concerns please return the emergency room. Print Language: Japanese Disposition Disposition: Home, Self Care Discharge Date/Time: 06/25/25 14:37
[2025-06-25 11:22] LABS: Hematocrit 43.0 % (40-54); Hemoglobin 14.7 g/dL (13.0-16.5); Immature Granulocytes Count 0.030 X10^3/uL (0.0-0.0); Mean Corp Hgb Conc 34.2 g/dL (32-36); Mean Corpuscular Volume 89.8 fL (80-94); Mean Platelet Vol. 8.9 fl (6.2-12.0); NRBC Flagged by Analyzer 0 % (0-5); Platelet Count 209 K/mm3 (150-450); RBC Distribution Width CV 12.8 % (11.6-14.6); RBC Distribution Width SD 42.2 fl (35.1-43.9); Red Blood Count 4.79 M/mm3 (4.6-6.2); White Blood Count 8.6 K/mm3 (4.4-11.0)
[2025-06-25 11:37] VITALS: BP 130/83; PULSE 66; RESP 21; O2SAT 95
[2025-06-25 11:37] LABS: Anion Gap 11 (5-15); BUN 14 mg/dL (4-19); BUN/Creat Ratio 14.2 RATIO (10-20); Calcium,Total 9.0 mg/dL (7.6-11.0); Carbon Dioxide 24.9 mmol/L (21.0-32.0); Chloride 103 mmol/L (98-108); Estimated Creatinine Clearance 110.23 ml/min (50-250); Glucose 118 mg/dL (70-99); Potassium 4.1 mmol/L (3.3-5.1); Troponin T High Sensitivity 6 ng/L (<=22)
--- OUTSIDE RECORDS SUMMARY | 2025-06-25 11:39 | XMS RPT_ITS | CCD ---
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 suggests IMPAIRED HOMEOSTASIS per A.D.A. criteria. Performed By: #### L 501.4700, L500.4050, L100.0100 #### [facility] [address] [place], [address] Potassium [Moles/Vol] 4.0 mmol/L Normal 3.5-5.1 [facility] Comment on above: Performed By: #### L 501.4700, L500.4050, L100.0100 #### [facility] [address] [place], [address] Sodium [Moles/Vol] 141 mmol/L Normal 136-145 [facility] Comment on above: Performed By: #### L 501.4700, L500.4050, L100.0100 #### [facility] [address] [place], [address] Urea nitrogen [Mass/Vol] 27 mg/dL High 7-18 [facility] Comment on above: Performed By: #### L 501.4700, L500.4050, L100.0100 #### [facility] [address] [place], [address] CBC W/Diff, Automatedon 06-20 Absolute Lymph 2.76 X10 3/uL Normal 0.83-4.51 [facility] Comment on above: Performed By: #### L 501.4700, L500.4050, L100.0100 #### [facility] [address] [place], [address] Absolute Neut 7.2 X10 3/uL Normal 2.0-7.7 [facility] Comment on above: Performed By: #### L 501.4700, L500.4050, L100.0100 #### [facility] [address] [place], [address] Basophils/100 WBC (Bld) 0.7 % Normal 0-1 [facility] Comment on above: Performed By: #### L 501.4700, L500.4050, L100.0100 #### [facility] [address] [place], [address] Eosinophils/100 WBC (Bld) 1.5 % Normal 0-5 [facility] Comment on above: Performed By: #### L 501.4700, L500.4050, L100.0100 #### [facility] [address] [place], [address] Erythrocyte distribution width (RBC) [Ratio] 12.7 % Normal 11.6-14.6 [facility] Comment on above: Performed By: #### L 501.4700, L500.4050, L100.0100 #### [facility] [address] [place], [address] Hematocrit (Bld) [Volume fraction] 42.5 % Normal 40-54 [facility] Comment on above: Performed By: #### L 501.4700, L500.4050, L100.0100 #### [facility] [address] [place], [address] Hemoglobin (Bld) [Mass/Vol] 14.2 g/dL Normal 13.0-16.5 [facility] Comment on above: Performed By: #### L 501.4700, L500.4050, L100.0100 #### [facility] [address] [place], [address] IG% 0.200 Normal 0.0-0.9 [facility] Comment on above: Result Comment: IG% - Immature Granulocytes (promyelocytes, myelocytes and metamyelocytes) > 1% indicates that a LEFT SHIFT is Present. Performed By: #### L 501.4700, L500.4050, L100.0100 #### [facility] [address] [place], [address] Lymphocytes/100 WBC (Bld) 23.9 % Normal 19-41 [facility] Comment on above: Performed By: #### L 501.4700, L500.4050, L100.0100 #### [facility] [address] [place], [address] MCH (RBC) [Entitic mass] 30.0 pg Normal 27.0-32.0 [facility] Comment on above: Performed By: #### L 501.4700, L500.4050, L100.0100 #### [facility] [address] [place], [address] MCHC (RBC) [Mass/Vol] 33.4 g/dL Normal 32-36 [facility] Comment on above: Performed By: #### L 501.4700, L500.4050, L100.0100 #### [facility] [address] [place], [address] MCV (RBC) [Entitic vol] 89.9 fL Normal 80-94 [facility] Comment on above: Performed By: #### L 501.4700, L500.4050, L100.0100 #### [facility] [address] [place], [address] Monocytes/100 WBC (Bld) 11.2 % High 0-10 [facility] Comment on above: Performed By: #### L 501.4700, L500.4050, L100.0100 #### [facility] [address] [place], [address] Neutrophils/100 WBC (Bld) 62.5 % Normal 47-70 [facility] Comment on above: Performed By: #### L 501.4700, L500.4050, L100.0100 #### [facility] [address] [place], [address] Nucleated RBC (Bld) [#/Vol] 0 10*3/uL Normal 0-5 [facility] Comment on above: Performed By: #### L 501.4700, L500.4050, L100.0100 #### [facility] [address] [place], [address] Platelet mean volume (Bld) [Entitic vol] 9.2 fL Normal 6.2-12.0 [facility] Comment on above: Performed By: #### L 501.4700, L500.4050, L100.0100 #### [facility] [address] [place], [address] Platelets (Bld) [#/Vol] 210 10*3/uL Normal 150-450 [facility] Comment on above: Performed By: #### L 501.4700, L500.4050, L100.0100 #### [facility] [address] [place], [address] RBC (Bld) [#/Vol] 4.73 10*6/uL Normal 4.6-6.2 [facility] Comment on above: Performed By: #### L 501.4700, L500.4050, L100.0100 #### [facility] [address] [place], [address] RDW SD 42.2 fl Normal 35.1-43.9 [facility] Comment on above: Performed By: #### L 501.4700, L500.4050, L100.0100 #### [facility] [address] [place], [address] WBC (Bld) [#/Vol] 11.6 10*3/uL High 4.4-11.0 [facility] Comment on above: Performed By: #### L 501.4700, L500.4050, L100.0100 #### [facility] [address] [place], [address] Emergency Department Summary on 07-10-2024 Emergency Department Summary [facility] Medical Records Department [address] [place] [address] Emergency Department Summary 07/10/24 MR#: [id number] Acct: [id number] Name: ATILIO BARR . Rep #: [id number] : 1965 59 From: Yg Chapa MD PCP: Dr. Oswaldo Schulte MD Status:REG ER Location: ED HPI History of Present Illness Chief Complaint: Flank Pain Detail of Chief Complaint: Acute right-sided abdominal pain with radiation to the right lower quadrant Informant: patient Onset/Context/Timing Onset: Today and Hours Context: Sudden Onset Timing: Continuous and Waxes and wanes Quality: Fluctuating pain Location: Right side anterior to the kidney Current Severity: Moderate Maximum Severity: Severe Worsened by: Nothing Relieved by: Nothing Associated Symptoms Associated Symptoms: Frequency, urgency and slight dysuria Narrative Narrative: Patient is a 59-year-old male. He was seen recently here and diagnosed with a ureteral stone. He presents because of abrupt onset of pain that is anterior the right kidney radiating inferiorly. He does report mild dysuria. He also endorses frequency and urgency. Is not noted any blood. He denies scrotal or testicular pain. He denies fever, chills night sweats. He denies vomiting or diarrhea. He denies direct or indirect trauma. He denies rash. Patient had a CAT scan during that visit which revealed a 6 mm renal calculus and a 3 mm left calculus. Prior similar symptoms: Yes Recent Illness/Hospitalization: Yes [facility] Medical History (Updated 07/10/24 @ 23:[address] Yg Chapa MD) Bilateral kidney stones Medical History no medical history Home Medications ???Medication ???Instructions ???Recorded ???Last Taken ???Type cyclobenzaprine 10 mg tablet 10 mg PO TID PRN Muscle Spasm #20 04/15/19 Unknown Rx tabs oxycodone-acetaminophen 5 mg-325 1 tab PO Q6H PRN PRN pain 5 days 07/10/24 Unknown Rx mg tablet #20 TABLETS Allergy/AdvReac Type Severity Reaction Status Date / Time Penicillins Allergy UNKOWN Verified 07/10/24 21:41 Social History Smoking Status: Former smoker ROS ROS ED Constitutional Constitutional ED: Denies chills, fever(s), subjective, sweats or weight loss Cardiovascular Cardiovascular: Denies chest pain or palpitations Respiratory/Chest Respiratory/Chest: Denies cough, dyspnea or dyspnea on exertion Gastrointestinal Gastrointestinal: Reports abdominal pain and nausea; Denies constipation, diarrhea, melena or vomiting Genitourinary Genitourinary ED: Reports dysuria and urinary frequency; Denies hematuria Musculoskeletal Musculoskeletal: Denies arthralgias, back pain, myalgias or neck pain Integumentary Denies rash Neurologic Neurologic: Denies headache(s) Hematologic/Lymphatic Hematologic/Lymphatic: Reports systems reviewed and no addt'l complaints, except as documented EXAM Physical Exam Const Vital Signs: 07/10/24 21:40 Temperature 98.7 F Temperature Source Oral Pulse Rate 83 Respiratory Rate 16 Blood Pressure 200/95 H Blood Pressure Mean 130 Pulse Ox 98 Oxygen Delivery Method Room Air Positive well nourished and well developed General Appearance ED: well developed and NAD; Negative for cyanotic, diaphoretic or pallor HEENT Reports moist mucous membranes HEENT Narrative: Head is atraumatic no cephalic. Ears normal. Nares patent. Eyes PERRL and EOMs intact bilaterally General Eye ED: Negative for pale conjunctiva or scleral icterus Resp normal respiratory effort and clear to auscultation bilaterally Cardio regular rate, regular rhythm, S1 normal heart sound, S2 normal heart sound and no murmurs GI normal to inspection, nondistended, normoactive bowel sounds, non-tender, non-distended and no masses; Negative for hepatosplenomegaly Back/Spine no CVA tenderness Back/Spine Narrative: Inspection of the back is normal. Extremity normal to inspection Neuro oriented x3 and CN's II-XII intact bilaterally Sensorium / Orientation: alert Psych mental status grossly normal Skin no rashes or lesions noted, no wounds and skin turgor normal General Skin Exam: Negative for jaundice or pallor MDM MDM MDM Narrative Medical decision making narrative: Prior visit was noted. Prior scan was reviewed. Since patient complains of urinary symptoms will obtain CT of the abdomen and pelvis without contrast as well as white count, BMP to assess renal function electrolytes and UA to rule out infection. Lab Data Attestation: I reviewed the patient's lab results. Lab results narrative: White count slightly elevated 11.6 which is nonspecific. Basic metabolic panel reveals an elevated creatinine of 1.37. It was elevated prior visit. UA reveals hematuria microscopic. There is no (more content not included)... Normal [facility] Urinalysis, Completeon 07-10 BACTERIA RARE Normal None Seen [facility] Comment on above: Order Comment: CLEAN CATCH Performed By: #### L 400.0001 #### [facility] [address] [place], [place], [id number] (012) RBC 5-10 SEEN Normal 0-5 [facility] Comment on above: Order Comment: CLEAN CATCH Performed By: #### L 400.0001 #### [facility] [address] [place], [address] WBC 0-5 SEEN Normal 0-5 [facility] Comment on above: Order Comment: CLEAN CATCH Performed By: #### L 400.0001 #### [facility] [address] [place], [address] EPI,SQUAMOUS 0 SEEN Normal 0-5 [facility] Comment on above: Order Comment: CLEAN CATCH Performed By: #### L 400.0001 #### [facility] [address] [place], [address] Mucus Ql (Urine sed) 0 SEEN Normal [facility] Comment on above: Order Comment: CLEAN CATCH Performed By: #### L 400.0001 #### [facility] [address] [place], [address] Abdomen/Pelvis W IV Cont ONL Yon 06-01-2024 Abdomen/Pelvis W IV Cont ONLY [facility] Imaging Services [address] [place] [address] Abdomen/Pelvis W IV Cont ONLY MR#: [id number] Acct: [id number] Name: ATILIO BARR JrSouleymane Rep #: [id number] : 1965 M 59 From: Sravan Watkins MD PCP: Dr. Oswaldo Schulte MD Status: REG ER Study: Abdomen/Pelvis W IV Cont ONLY Date of Exam: Exam# [id number] Ordering Dr: Giovanny Marin DO [id number] STUDY: CT ABDOMEN AND PELVIS WITH CONTRAST REASON FOR EXAM: Male, 59 years old. Abdominal pain. Nausea and vomiting. RADIATION DOSAGE (If Supplied By Facility): CTDIvol = ( 18.70 ) mGy, DLP = ( 1357.01 ) mGycm TECHNIQUE: Transaxial images were obtained through the abdomen and pelvis without oral contrast. 100 ml of Isovue-370 contrast was administered. Sagittal and coronal images were reconstructed. Individualized dose optimization techniques were used for this CT. CT scan performed according to ALARA principles. Automated exposure control used during exam. COMPARISON: No relevant prior comparison study available FINDINGS: LOWER THORAX: There is atelectasis at the lung bases. The visualized portions of the heart and pericardium are within normal limits. GALLBLADDER / BILE DUCTS: There are no calcified gallstones present. There is no intrahepatic biliary duct dilatation. The common bile duct is normal in caliber. There are no calcified ductal stones. LIVER: The liver is low in density, consistent with fatty infiltration. SPLEEN: The spleen is normal in size. PANCREAS: The pancreas is within normal limits. ADRENAL GLANDS: The adrenal glands are within normal limits. KIDNEYS / BLADDER: There is a 6 mm stone in the right distal ureter with moderate right hydroureteronephrosis and a delayed nephrogram in the right kidney. There is a 3 mm nonobstructing left renal collecting system stone. There are no left ureteral stones. There is no left hydronephrosis. There are no focal renal lesions. The urinary bladder is partially distended and appears grossly unremarkable. STOMACH / BOWEL: Normal visualized stomach. There is no bowel obstruction or inflammation. The appendix is visualized and appears normal. PERITONEUM/RETROPERITONEUM: There is no abdominal or pelvic free air, free fluid or fluid collection. There is no abnormal soft tissue mass identified. There is no abdominal or pelvic lymphadenopathy. VESSELS: The aorta is normal in caliber. The IVC is unremarkable. BONES: There are no destructive osseous lesions. SOFT TISSUES: The visualized soft tissues are within normal limits. CT/Abdomen/Pelvis W IV Cont ONLY IMPRESSION: 6 mm stone in the right distal ureter with moderate right hydroureteronephrosis and a delayed program in the right kidney. 3 mm nonobstructing left renal collecting system stone. No ureteral stones. No left-sided hydronephrosis. No bowel obstruction or inflammation. Normal appendix. Fatty liver. Electronically Signed: Sravan Watkins MD at 9:52 EDT , CC: Dr. Oswaldo Schulte MD; Dr. Giovanny Marin DO Professor Of Food Biochemistry: Signed Normal [facility] Bilirubin, Directon 06-01-20 24 Bilirubin.direct [Mass/Vol] 0.06 mg/dL Normal 0.00-0.30 [facility] Comment on above: Performed By: #### L 501.4700, L500.4050, L100.0100 #### [facility] [address] [place], [address] CBC W/Diff, Automatedon 05-19 Absolute Lymph 2.53 X10 3/uL Normal 0.83-4.51 [facility] Comment on above: Performed By: #### L 501.4700, L500.4050, L100.0100 #### [facility] [address] [place], [address] Absolute Neut 4.9 X10 3/uL Normal 2.0-7.7 [facility] Comment on above: Performed By: #### L 501.4700, L500.4050, L100.0100 #### [facility] [address] [place], [address] Basophils/100 WBC (Bld) 0.9 % Normal 0-1 [facility] Comment on above: Performed By: #### L 501.4700, L500.4050, L100.0100 #### [facility] [address] [place], [address] Eosinophils/100 WBC (Bld) 2.1 % Normal 0-5 [facility] Comment on above: Performed By: #### L 501.4700, L500.4050, L100.0100 #### [facility] [address] [place], [address] Erythrocyte distribution width (RBC) [Ratio] 12.6 % Normal 11.6-14.6 [facility] Comment on above: Performed By: #### L 501.4700, L500.4050, L100.0100 #### [facility] [address] [place], [address] Hematocrit (Bld) [Volume fraction] 43.0 % Normal 40-54 [facility] Comment on above: Performed By: #### L 501.4700, L500.4050, L100.0100 #### [facility] [address] [place], [address] Hemoglobin (Bld) [Mass/Vol] 14.4 g/dL Normal 13.0-16.5 [facility] Comment on above: Performed By: #### L 501.4700, L500.4050, L100.0100 #### [facility] [address] [place], [address] IG% 0.400 Normal 0.0-0.9 [facility] Comment on above: Result Comment: IG% - Immature Granulocytes (promyelocytes, myelocytes and metamyelocytes) > 1% indicates that a LEFT SHIFT is Present. Performed By: #### L 501.4700, L500.4050, L100.0100 #### [facility] [address] [place], [address] Lymphocytes/100 WBC (Bld) 30.0 % Normal 19-41 [facility] Comment on above: Performed By: #### L 501.4700, L500.4050, L100.0100 #### [facility] [address] [place], [address] MCH (RBC) [Entitic mass] 30.6 pg Normal 27.0-32.0 [facility] Comment on above: Performed By: #### L 501.4700, L500.4050, L100.0100 #### [facility] [address] [place], [address] MCHC (RBC) [Mass/Vol] 33.5 g/dL Normal 32-36 [facility] Comment on above: Performed By: #### L 501.4700, L500.4050, L100.0100 #### [facility] [address] [place], [address] MCV (RBC) [Entitic vol] 91.3 fL Normal 80-94 [facility] Comment on above: Performed By: #### L 501.4700, L500.4050, L100.0100 #### [facility] [address] [place], [address] Monocytes/100 WBC (Bld) 8.4 % Normal 0-10 [facility] Comment on above: Performed By: #### L 501.4700, L500.4050, L100.0100 #### [facility] [address] [place], [address] Neutrophils/100 WBC (Bld) 58.2 % Normal 47-70 [facility] Comment on above: Performed By: #### L 501.4700, L500.4050, L100.0100 #### [facility] [address] [place], [address] Nucleated RBC (Bld) [#/Vol] 0 10*3/uL Normal 0-5 [facility] Comment on above: Performed By: #### L 501.4700, L500.4050, L100.0100 #### [facility] [address] [place], [address] Platelet mean volume (Bld) [Entitic vol] 9.4 fL Normal 6.2-12.0 [facility] Comment on above: Performed By: #### L 501.4700, L500.4050, L100.0100 #### [facility] [address] [place], [address] Platelets (Bld) [#/Vol] 211 10*3/uL Normal 150-450 [facility] Comment on above: Performed By: #### L 501.4700, L500.4050, L100.0100 #### [facility] [address] [place], [address] RBC (Bld) [#/Vol] 4.71 10*6/uL Normal 4.6-6.2 [facility] Comment on above: Performed By: #### L 501.4700, L500.4050, L100.0100 #### [facility] [address] [place], [address] RDW SD 42.1 fl Normal 35.1-43.9 [facility] Comment on above: Performed By: #### L 501.4700, L500.4050, L100.0100 #### [facility] [address] [place], [address] WBC (Bld) [#/Vol] 8.4 10*3/uL Normal 4.4-11.0 [facility] Comment on above: Performed By: #### L 501.4700, L500.4050, L100.0100 #### [facility] [address] [place], [address] Comprehensive Metabolic Prof [facility] 06-01-2024 Albumin [Mass/Vol] 3.3 g/dL Normal 3.2-5.0 [facility] Comment on above: Performed By: #### L 501.4700, L500.4050, L100.0100 #### [facility] [address] [place], [address] Albumin/Globulin [Mass ratio] 1.0 {ratio} Normal 0.9-2.4 [facility] Comment on above: Performed By: #### L 501.4700, L500.4050, L100.0100 #### [facility] [address] [place], [address] ALK P 80 U/L Normal 45-117 [facility] Comment on above: Performed By: #### L 501.4700, L500.4050, L100.0100 #### [facility] [address] [place], [address] ALT [Catalytic activity/Vol] 39 U/L Normal 16-61 [facility] Comment on above: Performed By: #### L 501.4700, L500.4050, L100.0100 #### [facility] [address] [place], [address] AST [Catalytic activity/Vol] 24 U/L Normal 15-37 [facility] Comment on above: Performed By: #### L 501.4700, L500.4050, L100.0100 #### [facility] [address] [place], [address] Bilirubin [Mass/Vol] 0.20 mg/dL Normal 0.20-1.00 [facility] Comment on above: Result Comment: For patients on eltrombopag therapy, use of Dimension [place] TBIL is not recommended. Performed By: #### L 501.4700, L500.4050, L100.0100 #### [facility] [address] [place], [address] BUN/CRE 13.5 RATIO Normal 10-20 [facility] Comment on above: Performed By: #### L 501.4700, L500.4050, L100.0100 #### [facility] [address] [place], [address] CA,Total 8.5 mg/dL Normal 8.5-10.1 [facility] Comment on above: Performed By: #### L 501.4700, L500.4050, L100.0100 #### [facility] [address] [place], [address] Chloride [Moles/Vol] 111 mmol/L High 98-107 [facility] Comment on above: Performed By: #### L 501.4700, L500.4050, L100.0100 #### [facility] [address] [place], [address] CO2 [Moles/Vol] 27.0 mmol/L Normal 21.0-32.0 [facility] Comment on above: Performed By: #### L 501.4700, L500.4050, L100.0100 #### [facility] [address] [place], [address] Creatinine [Mass/Vol] 1.41 mg/dL High 0.70-1.30 [facility] Comment on above: Result Comment: The validity of the calculated GFR GFRAA in patients over 70 years has not been determined. Clinical correlation is essential. Performed By: #### L 501.4700, L500.4050, L100.0100 #### [facility] [address] [place], [address] ECRCL 80.93 ml/min Normal [facility] Comment on above: Performed By: #### L 501.4700, L500.4050, L100.0100 #### [facility] [address] [place], [address] EST GFR - AA 66 mL/min Normal >60 [facility] Comment on above: Result Comment: Afri can Swiss GFR Calc Performed By: #### L 501.4700, L500.4050, L100.0100 #### [facility] [address] [place], [address] GAP 5 Normal 5-15 [facility] Comment on above: Performed By: #### L 501.4700, L500.4050, L100.0100 #### [facility] [address] [place], [address] GFR/1.73 sq M.predicted among non-blacks MDRD (S/P/Bld) [Vol rate/Area] 55 mL/min/{1.73_m2} Low >60 [facility] Comment on above: Result Comment: Non- GFR Calc Performed By: #### L 501.4700, L500.4050, L100.0100 #### [facility] [address] [place], [address] Globulin (S) [Mass/Vol] 3.3 g/dL Normal 2.2-4.2 [facility] Comment on above: Performed By: #### L 501.4700, L500.4050, L100.0100 #### [facility] [address] [place], [address] Glucose [Mass/Vol] 126 mg/dL High 74-106 [facility] Comment on above: Result Comment: Fast ing Glucose result greater than or equal to 126 mg/dL suggests DIABETES MELLITUS per A.D.A. criteria. Performed By: #### L 501.4700, L500.4050, L100.0100 #### [facility] [address] [place], [address] Potassium [Moles/Vol] 4.0 mmol/L Normal 3.5-5.1 [facility] Comment on above: Performed By: #### L 501.4700, L500.4050, L100.0100 #### [facility] [address] [place], [address] Sodium [Moles/Vol] 143 mmol/L Normal 136-145 [facility] Comment on above: Performed By: #### L 501.4700, L500.4050, L100.0100 #### [facility] [address] [place], [address] T PROT 6.6 g/dL Normal 6.4-8.2 [facility] Comment on above: Performed By: #### L 501.4700, L500.4050, L100.0100 #### [facility] [address] [place], [address] Urea nitrogen [Mass/Vol] 19 mg/dL High 7-18 [facility] Comment on above: Performed By: #### L 501.4700, L500.4050, L100.0100 #### [facility] [address] [place], [address] Emergency Department Summary on 06-01-2024 Emergency Department Summary [facility] Medical Records Department [address] [place] [address] Emergency Department Summary 06/01/24 MR#: [id number] Acct: [id number] Name: ATILIO BARR Jr. Rep #: [id number] : 1965 59 From: Giovanny Marin DO PCP: Dr. Oswaldo Schulte MD Status:REG ER Location: ED HPI History of Present Illness Chief Complaint: Abd Pain PFSH PFSH Home Medications ???Medication ???Instructions ???Recorded ???Last Taken ???Type cyclobenzaprine 10 mg tablet 10 mg PO TID PRN Muscle Spasm #20 04/15/19 Unknown Rx tabs naproxen 500 mg tablet 500 mg PO BID PRN PRN Pain #20 tabs 04/15/19 Unknown Rx ondansetron 4 mg disintegrating 4 mg PO Q8H PRN PRN Nausea #10 tabs 06/01/24 Unknown Rx tablet oxycodone 5 mg tablet 5 mg PO Q6H PRN pain 3 days #12 06/01/24 Unknown Rx tabs Allergy/AdvReac Type Severity Reaction Status Date / Time No Known Allergies Allergy Verified 06/16/19 15:31 Social History (System 06/16/19 @ 15:31 by Rosa Alegre) Smoking Status: Former smoker EXAM Physical Exam Const Vital Signs: 06/01/24 07:31 06/01/24 09:46 06/01/24 11:00 Temperature 96.7 F L 97.8 F Temperature Source Temporal Temporal Pulse Rate 67 72 79 Respiratory Rate 19 H 18 18 Blood Pressure 192/91 H 173/79 H 147/78 H Blood Pressure Mean 124 110 101 Pulse Ox 99 97 98 Oxygen Delivery Method Room Air Room Air Room Air MDM MDM MDM Narrative Medical decision making narrative: HISTORY OF PRESENT ILLNESS: 59-year-old male presents abdominal pain that began last night. Denies associated nausea vomiting or diarrhea. The patient further states pain was sudden onset. Prevented her from sleeping. Is located over the right mid abdomen. No history of abdominal surgeries. Denies any abdominal distention. Denies any vomiting. Denies chest pain or shortness of breath. Denies focal numbness weakness or loss sensation. Denies family or personal history of aneurysms or connective tissue diseases. 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 Denies any recent drug use. REVIEW OF SYSTEMS: Pertinent positives: Abdominal pain Pertinent negatives: Nausea vomiting diarrhea PHYSICAL EXAM: Nursing triage notes reviewed, Vital signs reviewed Constitutional: please see [facility] HENT: MMM Eyes: Pupils equal round and reactive to light, Extraocular muscles intact Neck: No stridor, no JVD, full neck ROM Lungs: Clear to auscultation, No wheezing or rales. No increased work of breathing, no conversational dyspnea, no accessory muscle use, no nasal flaring. No respiratory distress noted Heart: Regular rate and rhythm, No murmurs, No rubs and No gallops, 2+ distal pulses (radial, femoral, posterior tibial) in all extremities Abdomen: Soft, there is right sided abdominal tenderness, rigidity, rebound or guarding, no obvious peritoneal signs, no palpable pulsatile abdominal masses, no auscultated abdominal bruit : No CVAT Extremities: No edema Neuro: No focal neurological deficits, cranial nerves II through XII intact, 5/5 strength in all extremities. Intact sensation to light touch in all extremities, 2+ reflexes bilateral patella tendons. Normal gait. No ataxia. Skin: No rash or lesions noted MEDICAL DECISION MAKING: Chief Complaint: Abdominal pain External records reviewed: No recent advanced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 DRILL PRESS SET UP OPERATOR.EMBROIDERY MACHINE OPERATOR Work Phone: [facility] 08-01-2022 13:43-0400 Heart rate 65 /min Della Callow DRILL PRESS SET UP OPERATOR.EMBROIDERY MACHINE OPERATOR Work Phone: [facility] 08-01-2022 13:43-0400 Respiratory rate 18 /min Della Callow DRILL PRESS SET UP OPERATOR.EMBROIDERY MACHINE OPERATOR Work Phone: [facility] 08-01-2022 13:43-0400 SaO2% (BldA) [Mass fraction] 97 % Della Callow DRILL PRESS SET UP OPERATOR.EMBROIDERY MACHINE OPERATOR Work Phone: [facility] 08-01-2022 13:43-0400 Systolic blood pressure 128 mm[Hg] Della Callow DRILL PRESS SET UP OPERATOR.EMBROIDERY MACHINE OPERATOR Work Phone: [facility] 07-14-2022 11:07-0400 Body temperature 98.49 [degF] Valentine Bogian PA-C Work Phone: [facility] 07-14-2022 11:07-0400 Body weight 128.82 kg Valentine Bogner PA-C Work Phone: [facility] 07-14-2022 11:07-0400 Diastolic blood pressure 82 mm[Hg] Valentine Bogner PA-C Work Phone: [facility] 07-14-2022 11:07-0400 Heart rate 78 /min Valentine Bogner PA-C Work Phone: [facility] 07-14-2022 11:07-0400 Respiratory rate 16 /min Valentine Bogner PA-C Work Phone: [facility] 07-14-2022 11:07-0400 SaO2% (BldA) [Mass fraction] 96 % Valentine Bogner PA-C Work Phone: [facility] 07-14-2022 11:07-0400 Systolic blood pressure 148 mm[Hg] Valentine Bogner PA-C Work Phone: [facility] 04-16-2022 13:33-0400 Body height 185.4 cm Kimi Reid Jr., MD Work Phone: [facility] 04-16-2022 13:33-0400 Body weight 124.74 kg Kimi Reid Jr., MD Work Phone: [facility] 04-16-2022 13:33-0400 Diastolic blood pressure 78 mm[Hg] Kimi Reid Jr., MD Work Phone: [facility] 04-16-2022 13:33-0400 Systolic blood pressure 118 mm[Hg] Kimi Reid Jr., MD Work Phone: [facility] 05-28-2017 14:56-0400 BMI (Body Mass Index) 36.07 kg/m2 Yoseph Valladares MD [facility] Work Phone: 05-28-2017 14:56-0400 Body Temperature 97.9 [degF] Yoseph Valladares MD [facility] Work Phone: 05-28-2017 14:56-0400 BP Diastolic 79 mm[Hg] Yoseph Valladares MD [facility] Work Phone: 05-28-2017 14:56-0400 BP Systolic 124 mm[Hg] Yoseph Valladares MD [facility] Work Phone: 05-28-2017 14:56-0400 Height 179.07 cm Yoseph Valladares MD [facility] Work Phone: 05-28-2017 14:56-0400 Pulse (Heart Rate) 76 /min Yoseph Valladares MD [facility] Work Phone: 05-28-2017 14:56-0400 Weight 115.67 kg Yoseph Valladares MD [facility] Work Phone: Encounters Encounter Date Encounter Type Care Provider Facility Start: 10-27-2024 End: 10-28-2024 Telephone encounter Oswaldo Schulte MD Work Phone: [facility] Comment on above: Results Start: 10-27-2024 End: 10-27-2024 ambulatory OSWALDO SCHULTE Facility:[facility] Start: 10-27-2024 Encounter for genera l adult medical examination without abnormal findings OSWALDO SCHULTE [facility] Start: 10-27-2024 End: 10-27-2024 Patient encounter procedure Oswaldo Schulte MD Work Phone: [facility] Comment on above: Well adult exam (Carmen ernie Dx); Recovering alcoholic (HCC); 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); Severe sleep apnea; Elevated PSA; Encounter for screening for cardiovascular disorders; Encounter for screening for diabetes mellitus; Screening for prostate cancer; Medication management; Need for vaccination; Encounter for immunization; Sinobronchitis; History of shingles Start: 10-27-2024 End: 10-27-2024 Patient encounter status Oswaldo Schulte MD Work Phone: [facility] Work Phone: Start: 10-27-2024 End: 10-27-2024 ambulatory OSWALDO SCHULTE Facility:[facility] Start: 10-17-2024 End: 10-17-2024 ambulatory OSWALDO SCHULTE Facility:[facility] Start: 10-17-2024 End: 10-17-2024 Office outpatient visit 25 minutes Oswaldo Stevenson DRILL PRESS SET UP OPERATOR.EMBROIDERY MACHINE OPERATOR Work Phone: [facility] Comment on above: Sinobronchitis (Prim shahrzad Dx) Start: 07-11-2024 End: 07-11-2024 Chart abstracting Oswaldo Schulte MD Work Phone: [facility] [place] Comment on above: ER Discharge Summary Start: 07-10-2024 End: 07-11-2024 Emergency department patient visit [facility] Facility:[facility] Start: 06-08-2024 End: 06-08-2024 Chart abstracting Oswaldo Schulte MD Work Phone: [facility] [place] Comment on above: ER F/U Start: 06-01-2024 End: 06-01-2024 [facility] Start: 01-26-2024 End: 01-26-2024 Patient encounter procedure Geeta Webber PA-C Work Phone: [facility] Comment on above: Herpes zoster withou t complications (Primary Dx) Start: 01-26-2024 End: 01-26-2024 ambulatory OSWALDO Cierra FRANCA Facility:[facility] Start: 01-22-2024 End: 01-22-2024 ambulatory [facility] Facility:[facility] Start: 01-22-2024 End: 01-22-2024 Patient encounter procedure Oswaldo Schulte MD Work Phone: [facility] Comment on above: Bacterial sinusitis (Primary Dx) Start: 01-08-2024 End: 01-08-2024 [facility]ulatory [facility] Facility[facility] Start: 01-08-2024 End: 01-08-2024 Office outpatient visit 25 minutes Oswaldo Stevenson DRILL PRESS SET UP OPERATOR.EMBROIDERY MACHINE OPERATOR Work Phone: [facility] Comment on above: Sinobronchitis (Prim shahrzad Dx) Start: 01-04-2024 End: 01-04-2024 ambulatory OSWALDO SCHULTE Facility:[facility] Start: 01-04-2024 End: 01-04-2024 Patient encounter procedure Dina Charbel ANGEL.EMBROIDERY MACHINE OPERATOR Work Phone: [facility] Comment on above: Sinus congestion (Pr imary Dx); Acute cough; URI, acute Start: 11-20-2023 Orders Only Remigio Fierro er DRILL PRESS SET UP OPERATOR.EMBROIDERY MACHINE OPERATOR Work Phone: [facility] Comment on above: Tobacco abuse (Prima ry Dx) Start: 11-19-2023 End: 11-19-2023 ambulatory REMIGIO MCADAMS Facility:[facility] Start: 11-19-2023 End: 11-19-2023 Subsequent hospital visit by physician [facility] (I-Stat) Work Phone: Cat Scan Comment on above: Tobacco abuse [Z72.0 ] Start: 10-07-2023 End: 10-07-2023 Subsequent hospital visit by physician Xr [facility] Work Phone: Radiology Comment on above: Right hip pain [M25. 551] Start: 10-07-[address] (I -Stat) Work Phone: [facility] Work Phone: Start: 10-01-2023 End: 10-01-2023 ambulatory Trevor Jimbo PT Work Phone: [facility] Comment on above: Plantar fasciitis (P rimary Dx) Start: 09-24-2023 End: 09-24-2023 ambulatory Trevor Jimbo PT Work Phone: [facility] Comment on above: Plantar fasciitis (P rimary Dx) Start: 09-11-2023 End: 09-11-2023 ambulatory Trevor Jimbo PT Work Phone: [facility] Comment on above: Plantar fasciitis (P rimary Dx) Start: 09-04-2023 End: 09-04-2023 ambulatory Payal Qureshi STERILIZATION SPECIALIST Work Phone: [facility] Comment on above: Plantar fasciitis (P rimary Dx) Start: 08-31-2023 End: 08-31-2023 ambulatory Payal Qureshi STERILIZATION SPECIALIST Work Phone: [facility] Comment on above: Plantar fasciitis (P rimary Dx) Start: 08-18-2023 End: 08-18-2023 ambulatory Payal Qureshi STERILIZATION SPECIALIST Work Phone: [facility] Comment on above: Plantar fasciitis (P rimary Dx) Start: 08-13-2023 End: 08-13-2023 Orders Only Chapo Torres MD Work Phone: Orthopaedics Comment on above: Right knee pain, uns pecified chronicity (Primary Dx) Plantar fasciitis (P rimary Dx) Start: 07-30-2023 End: 07-30-2023 ambulatory Trevor Choi PT Work Phone: [facility] Comment on above: Plantar fasciitis (P rimary Dx) Start: 07-02-2023 End: 07-02-2023 ambulatory Trevorbrunilda Choi PT Work Phone: [facility] Comment on above: Plantar fasciitis (P rimary Dx) Start: 07-01-2023 End: 07-01-2023 Patient encounter procedure Elver Hodges Work Phone: Podiatry Comment on above: Plantar fasciitis Start: 06-24-2023 Telephone encounter Oswaldo Schulte MD Work Phone: [facility] Comment on above: Patient Question Start: 05-01-2023 End: 05-01-2023 Patient encounter procedure Rika Hong PA-C Work Phone: General Surgery Comment on above: Cutaneous abscess of groin (Primary Dx) Start: 04-20-2023 End: 04-20-2023 Patient encounter procedure Rika Hong PA-C Work Phone: General Surgery Comment on above: Cutaneous abscess of groin (Primary Dx) Start: 04-14-2023 End: 04-14-2023 Patient encounter procedure Geeta Webber PA-C Work Phone: [facility] Comment on above: Sebaceous cyst (Prim shahrzad Dx); Abscess Cutaneous abscess of groin (Primary Dx); Sebaceous cyst Start: 03-31-2023 ambulatory Rika Torres um DRILL PRESS SET UP OPERATOR.EMBROIDERY MACHINE OPERATOR Work Phone: Pulmonary Medicine Start: 03-24-2023 Telephone encounter Oswaldo Schulte MD Work Phone: [facility] Comment on above: Results Start: 03-22-2023 Telephone encounter Oswaldo Schulte MD Work Phone: [facility] Comment on above: Results Start: 03-20-2023 ambulatory Heather robison RT(R) Radiology Start: 03-20-2023 End: 03-20-2023 Subsequent hospital visit by physician Mary Jane [facility] Work Phone: Radiology Comment on above: Plantar fasciitis [M 72.2] Start: 03-20-2023 End: 03-20-2023 Patient encounter procedure Oswaldo Schulte MD Work Phone: [facility] Comment on above: Plantar fasciitis (P rimary Dx); Fatigue, unspecified type; Elevated PSA Start: 09-14-2022 Telephone encounter Oswaldo Schulte MD Work Phone: [facility] Comment on above: Results Start: 09-08-2022 Telephone encounter Oswaldo Schulte MD Work Phone: [facility] [place] Comment on above: Electronic Communica tion Start: 09-03-2022 End: 09-03-2022 Patient encounter procedure Oswaldo Schulte MD Work Phone: [facility] Comment on above: Well adult exam (Carmen ernie Dx); Severe sleep apnea; Recovering alcoholic (HCC); Ex-smoker; 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); Elevated PSA; Chronic pain syndrome; Encounter for screening for diabetes mellitus; Encounter for screening for cardiovascular disorders Start: 09-03-2022 End: 09-03-2022 Patient encounter status Oswaldo Schulte MD Work Phone: [facility] Start: 08-27-2022 Telephone encounter Oswaldo Schulte MD Work Phone: [facility] Comment on above: new DME comapny for Cpap supplies Start: 08-13-2022 End: 08-13-2022 Patient encounter procedure Silviaavis Santos APRN.EMBROIDERY MACHINE OPERATOR Work Phone: [facility] Comment on above: Bacterial sinusitis (Primary Dx); Acute cough Start: 08-01-2022 End: 08-01-2022 Subsequent hospital visit by physician Mary Jane [facility] Work Phone: Radiology Comment on above: Chest congestion [R0 9.89] Start: 08-01-2022 End: 08-01-2022 Patient encounter procedure Della Mora APRN.EMBROIDERY MACHINE OPERATOR Work Phone: [facility] Comment on above: Chest congestion (Pr imary Dx) Start: 07-14-2022 End: 07-14-2022 Office outpatient visit 15 minutes Valentine Wallace PA-C Work Phone: [facility] Comment on above: Acute cough (Primary Dx); Elevated BP without diagnosis of hypertension Start: 04-16-2022 End: 04-16-2022 Patient encounter procedure Kimi Reid MD Work Phone: [facility] Comment on above: Elevated prostate sp ecific antigen (PSA) Start: 08-21-2021 Patient encounter status Jurgen Reid Jr., MD Work Phone: [facility] Work Phone: Procedures Date Procedure Procedure Detail Performing Clinician Start: 10-27-2024 Lipid 1995 panel - S tamiko or Plasma Oswaldo Schulte MD Work Phone: Start: 01-04-2024 COVID & INFLUENZA A/ B & RSV NAAT, ROUTINE Dina Kwong APRN.EMBROIDERY MACHINE OPERATOR Work Phone: Start: 01-04-2024 STREP A MOLECULAR (POC) [facility] Provider Start: 10-07-2023 Radex hip unilateral with pelvis 2-3 views Oswaldo Schulte MD Work Phone: Start: 10-07-2023 Lipid 1996 panel - S tamiko or Plasma Ct (I-Stat) Work Phone: Start: 03-20-2023 Radex foot complete minimum 3 views Oswaldo Schulte MD Work Phone: Start: 09-12-2022 Lipid 1996 panel - S tamiko or Plasma Elver Hodges Work Phone: Start: 08-01-2022 Radiologic exam ches t 2 views Della Mora DRILL PRESS SET UP OPERATOR.EMBROIDERY MACHINE OPERATOR Work Phone: Start: 04-16-2022 Urnls dip stick/tabl et rgnt auto w/o microscopy Kimi Reid MD Work Phone: Start: 11-19-2021 Colonoscopy Kimi mcrae Jr., MD Work Phone: Start: 11-17-2020 Adult depression scr eening assessment Kimi Reid Jr., MD Work Phone: Plan of Treatment Date Care Activity Detail Author Start: 2039 RSV Vaccine (1 - 1-d ose 75+ series) RSV Vaccine (1 - 1-dose 75+ series) [facility] Start: 10-27-2034 Urine microalbumin profile DTaP,Tdap,Td Vaccine (3 - Td or Tdap) [facility] Start: 10-27-2029 Lipid panel Lipid Screening [facility] Start: 10-27-2029 Prostate specific antigen measurement Prostate Cancer Screening Discussion [facility] Start: 10-07-2028 Lipid panel Lipid Screening [facility] Start: 10-07-2028 Prostate specific antigen measurement Prostate Cancer Screening Discussion [facility] Start: 03-20-2028 PROSTATE CANCER SCREENING DISCUSSION PROSTATE CANCER SCREENING DISCUSSION [facility] Start: 03-20-2028 Prostate specific antigen measurement Prostate Cancer Screening Discussion [facility] Start: 10-27-2027 Diabetes Screening Diabetes Screenin g [facility] Start: 09-12-2027 Lipid 1996 panel - Serum or Plasma Lipid Screening [facility] Start: 09-12-2027 Lipid panel Lipid Screening [facility] Start: 09-12-2027 LIPID SCREEN LIPID SCREEN [facility] Start: 04-11-2027 PROSTATE CANCER SCREENING DISCUSSION PROSTATE CANCER SCREENING DISCUSSION [facility] Start: 11-19-2026 Colonoscopy COLONOSCOPY [facility] Start: 11-19-2026 COLORECTAL CANCER SCREENING COLORECTAL CANCER SCREENING [facility] Start: 11-19-2026 Screening for malign ant neoplasm of colon [facility] Start: 10-07-2026 Diabetes Screening Diabetes Screenin g [facility] Start: 08-23-2026 LIPID SCREEN LIPID SCREEN [facility] Start: 10-27-2025 Anxiety Screening Anxiety Screening [facility] Comment on above: Postponed from 03/27 (Declined at this time) Start: 10-27-2025 End: 10-27-2025 Patient encounter procedure 10/27/2025 8:00 AM EST Office [facility] [place] [address], [place] [id number] Oswaldo Schulte MD [address], [place] [id number] [facility] [place] Comment on above: Physical Start: 09-12-2025 DIABETES SCREEN DIABETES SCREEN [facility] Start: 09-12-2025 Diabetes Screening Diabetes Screenin g [facility] Start: 01-24-2025 Urine microalbumin profile [facility] Start: 11-19-2024 Screening for malign ant neoplasm of lung Lung Cancer Screening [facility] Start: 10-27-2024 End: 01-26-2025 Comprehensive metabolic 2000 panel - Serum or Plasma [facility] Work Phone: Comment on above: Expected: 10/27/2024 , Expires: 01/26/2025 Start: 10-27-2024 Depression Screening Depression Scre ening [facility] Comment on above: Postponed from 03/27 (Declined at this time) Start: 10-27-2024 End: 01-26-2025 LIPID PANEL, NONFASTING [facility] Comment on above: Expected: 10/27/2024 , Expires: 01/26/2025 Start: 10-27-2024 End: 01-26-2025 Prostate specific Ag [Mass/volume] in Serum or Plasma [facility] Comment on above: Expected: 10/27/2024 , Expires: 01/26/2025 Start: 10-27-2024 End: 10-27-2024 Patient encounter procedure 10/27/2024 8:00 AM EST Office Visit [facility] [place] [address] [place] [address] Oswaldo Schulte MD [address] [place], [place] [id number] [facility] Comment on above: Physical Start: 10-07-2024 Covid-19 Vaccine () Covid-19 Vaccine () [facility] Comment on above: Postponed from 06/19 (Declined at this time) Start: 10-07-2024 Shingrix Vaccine (1 of 2) Shingrix Vaccine (1 of 2) [facility] Comment on above: Postponed from 03/27 (Insurance Coverage) Start: 08-23-2024 DIABETES SCREEN DIABETES SCREEN [facility] Start: 06-19-2024 Covid-19 Vaccine () Covid-19 Vaccine () [facility] Start: 06-19-2024 Covid-19 Vaccine () Covid-19 Vaccine () [facility] Start: 2024 RSV Vaccine (1 - 1-d ose 60+ series) RSV Vaccine (1 - 1-dose 60+ series) [facility] Start: 2024 RSV Vaccine (1 - Ris k 60-74 years 1-dose series) RSV Vaccine (1 - Risk 60-74 years 1-dose series) [facility] Start: 10-19-2023 Behavioral Health Screening Behavioral Health Screening [facility] Start: 10-19-2023 Depression Assessment Depression Ass essment [facility] Start: 09-03-2023 COVID-19 VACCINE (4 - Booster for Pfizer series) COVID-19 VACCINE (4 - Booster for Pfizer series) [facility] Comment on above: Postponed from 11/12 (Declined at this time) Start: 09-03-2023 COVID-19 VACCINE (4 - Pfizer series) COVID-19 VACCINE (4 - Pfizer series) [facility] Comment on above: Postponed from 11/12 (Declined at this time) Start: 09-03-2023 SHINGRIX VACCINE (1 of 2) SHINGRIX VACCINE (1 of 2) [facility] Comment on above: Postponed from 03/27 (Insurance Coverage) Start: 06-19-2023 Covid-19 Vaccine () Covid-19 Vaccine () [facility] Start: 10-19-2022 DEPRESSION ASSESSMENT DEPRESSION ASS ESSMENT [facility] Start: 09-09-2022 Influenza vaccination LUNG CANCER SC REENING [facility] Start: 09-09-2022 Screening for malign ant neoplasm of lung Lung Cancer Screening [facility] Start: 09-03-2022 End: 11-03-2022 Hemoglobin A1c in Blood HGB A1C Lab Routine Well adult exam Encounter for screening for diabetes mellitus Expected: 09/03/2022, Expires: 11/03/2022 [facility] Work Phone: Comment on above: Expected: 09/03/2022 , Expires: 11/03/2022 Start: 09-03-2022 End: 11-03-2022 LIPID PANEL, NONFASTING LIPID PANEL, NONFASTING Lab Routine Well adult exam Encounter for screening for cardiovascular disorders Expected: 09/03/2022, Expires: 11/03/2022 [facility] Work Phone: Comment on above: Expected: 09/03/2022 , Expires: 11/03/2022 Start: 08-21-2022 SHINGRIX VACCINE (1 of 2) SHINGRIX VACCINE (1 of 2) [facility] Comment on above: Postponed from 03/27 (Insurance Coverage) Start: 01-15-2022 COVID-19 VACCINE (4 - Booster for Pfizer series) COVID-19 VACCINE (4 - Booster for Pfizer series) [facility] Start: 11-17-2021 Adult depression screening assessment DEPRESSION SCREENING [facility] Start: 11-12-2021 COVID-19 VACCINE (4 - Booster for Pfizer series) COVID-19 VACCINE (4 - Booster for Pfizer series) [facility] Start: 10-19-2021 DEPRESSION ASSESSMENT DEPRESSION ASS ESSMENT [facility] Start: 07-31-2017 FECAL OCCULT BLOOD FECAL OCCULT BLOO D [facility] Start: 07-31-2017 Screening for malign ant neoplasm of colon Fecal Occult Blood [facility] Start: 05-28-2017 End: 05-28-2017 Appointment Appointment [facility] Work Phone: Start: 05-28-2017 End: 05-28-2017 *BMP *BMP [facility] Work Phone: Start: 05-28-2017 End: 05-28-2017 *CBC with Differential *CBC with Differential [facility] Work Phone: Start: 05-28-2017 End: 05-28-2017 Follow Up Appt 1 year Follow Up Appt 1 year [facility] Work Phone: Start: 05-28-2017 End: 05-28-2017 HbA1c *HgA1C [facility] Work Phone: Start: 05-28-2017 End: 05-28-2017 Lipid panel [AGGREGATE] *Lipid Profile [facility] Work Phone: Start: 05-28-2017 End: 05-28-2017 PSA *PSA (Prostate Specific Antigen) [facility] Work Phone: Start: 2014 Pneumococcal Vaccine : 50+ (1 of 1 - PCV) Pneumococcal Vaccine: 50+ (1 of 1 - PCV) [facility] Start: 2014 SHINGRIX VACCINE (1 of 2) SHINGRIX VACCINE (1 of 2) [facility] Start: 2009 COLOGUARD (FIT-DNA) COLOGUARD (FIT-D NA) [facility] Start: [address] COLONOGRAPHY [facility] Start: 2009 Screening for malign ant neoplasm of colon [facility] Start: 2009 SIGMOIDOSCOPY SIGMOIDOSCOPY [facility] Start: 1982 Anxiety Screening Anxiety Screening [facility] Start: 1982 Depression Screening Depression Scre ening [facility] Start: 1965 HEPATITIS B (1 of 3 - 3-dose series) HEPATITIS B (1 of 3 - 3-dose series) [facility] CT LUNG SCREEN WO IVCON CT LUNG SCREEN WO IVCON Radiology Routine Tobacco abuse Encounter for screening for lung cancer 11/19/2023 9:49 AM EST [facility] Work Phone: End: 12-19-2024 CT LUNG SCREEN WO IVCON CT LUNG SCREEN WO IVCON Radiology Routine Tobacco abuse 1 Occurrences starting 11/20/2023 until 12/19/2024 [facility] Work Phone: Comment on above: 1 Occurrences starti ng 11/20/2023 until 12/19/2024 Influenza virus A an d B RNA and SARS-CoV-2 (COVID-19) N gene panel - Respiratory specimen by RAZIA with probe detection COVID WITH FLUA+B, ROUTINE Microbiology Routine Acute cough 07/14/2022 11:41 AM EDT [facility] Work Phone: End: 04-18-2024 XR FOOT GENERAL 3V AP/LAT/OBL RIGHT XR FOOT GENERAL 3V AP/LAT/OBL RIGHT Radiology Routine Plantar fasciitis 1 Occurrences starting 03/20/2023 until 04/18/2024 [facility] Work Phone: Comment on above: 1 Occurrences starti ng 03/20/2023 until 04/18/2024 XR FOOT GENERAL 3V AP/LAT/OBL RIGHT XR FOOT GENERAL 3V AP/LAT/OBL RIGHT Radiology Routine Plantar fasciitis 03/20/2023 11:58 AM EDT [facility] Work Phone: End: 09-11-2024 XR KNEE GENERAL 4V AP BOTH/PA BOTH/LAT/MERC RIGHT XR KNEE GENERAL 4V AP BOTH/PA BOTH/LAT/MERC RIGHT Radiology Routine Right knee pain, unspecified chronicity 1 Occurrences starting 08/13/2023 until 09/11/2024 [facility] Work Phone: Comment on above: 1 Occurrences starti ng 08/13/2023 until 09/11/2024 [facility] Immunizations Immunization Date Immunization Notes Care Provider Luis stanton 10-27-2024 pneumococcal conjuga te (PCV20) vaccine, 20 valent (PREVNAR 20) Oswaldo Schulte MD Work Phone: [facility] 10-27-2024 tetanus toxoid, redu sruthi diphtheria toxoid, and acellular pertussis vaccine, adsorbed Oswaldo Schulte MD Work Phone: [facility] 10-27-2024 pneumococcal Conjuga te, unspecified formulation Oswaldo Schulte MD Work Phone: [facility] 09-12-2020 influenza, injectabl e, quadrivalent, preservative free Oswaldo Schulte MD Work Phone: [facility] 01-24-2015 tetanus toxoid, redu sruthi diphtheria toxoid, and acellular pertussis vaccine, adsorbed Kimi Reid Jr., MD Work Phone: [facility] Payers Date Payer Category Payer Self-pay 2024 Unknown [id number] 2022 Medicaid [id number] 2015 Medicaid [employer] [id number] 2015-Present [phone] [address] [place] [address] Medicaid [id number] 2015 Medicaid [id number] Unknown [id number] Unknown [id number] Social History Date Type Detail Facility Start: 09-10-2011 End: 10-17-2024 Tobacco smoking status NHIS Ex-smoker [facility] Work Phone: Start: 04-02-1975 End: 04-02-2011 History of tobacco use Current smoker [facility] Work Phone: Start: 04-02-1975 End: 04-02-2011 History of tobacco use Cigarette Smoker [facility] Work Phone: Start: 09-10-2011 End: 03-20-2023 Cigarettes smoked current (pack per day) - Reported 1 [facility] Start: 09-10-2011 End: 10-17-2024 Tobacco use and exposure Smokeless tobacco non-user [facility] Work Phone: Start: 04-16-2022 End: 10-27-2024 Alcohol intake Current non-drinker of alcohol (finding) [facility] Start: 11-17-2020 End: 09-02-2022 History SDOH Alcohol Frequency 1 [facility] Start: 11-17-2020 History SDOH Alcohol Std Drinks 98 [facility] Start: 09-10-2011 History SDOH Alcohol Comment alcoholic addisct- sober since 2004 [facility] Start: 11-17-2020 End: 09-02-2022 History SDOH Social Connections Phone 5 [facility] Start: 11-17-2020 End: 09-02-2022 History SDOH Social Connections Get Together 3 [facility] Start: 11-17-2020 End: 09-02-2022 History SDOH Physical Activity DPW 4 [facility] Start: 11-17-2020 End: 09-02-2022 History SDOH Transport Med 2 [facility] Start: 11-17-2020 Education 14 [facility] Start: 1965 Sex Assigned At Not on file [facility] Start: 04-06-2022 End: 09-03-2022 Exposure to SARS-CoV-2 (event) Not sure [facility] Start: 09-02-2022 History SDOH Alcohol Std Drinks 0 [facility] Start: 09-01-2022 End: 03-20-2023 Social connection and isolation panel [facility] Do you belong to any clubs or organizations such as cheondoism groups, unions, fraternal or athletic groups, or school groups? Yes [facility] Are you now , , , , never or living with a partner? [facility] How often to you hav e a drink containing alcohol? Never [facility] How many standard dr inks containing alcohol do you have on a typical day? Patient does not drink [facility] How hard is it for y ou to pay for the very basics like food, housing, medical care, and heating Somewhat hard [facility] Do you feel stress - tense, restless, nervous, or anxious, or unable to sleep at night because your mind is troubled all the time - these days [OSQ] Only a little [facility] (I/We) worried whebriseida er (my/our) food would run out before (I/we) got money to buy more. Sometimes true [facility] The food that (I/we) bought just didn't last, and (I/we) didn't have money to get more. Never true [facility] In the past 12 month s, was there a time when you were not able to pay the mortgage or rent on time? No [facility] Do you feel stress - tense, restless, nervous, or anxious, or unable to sleep at night because your mind is troubled all the time - these days [OSQ] To some extent [facility] Clinical Notes 10-10-2021 to 10-28-2024 Telephone Encounter - Chaim Kwong MA - 10/28/2024 8:55 AM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 PERIPHERAL IV DATA: Not applicable SIGNED BY: RT Ant(R) November 19, 2023 2:57 PM [facility] 10-07-2023 History of Presen t illness Narrative Radiology Service Progress Note PATIENT NAME: Atilio Barr DATE OF SERVICE: October 07, 2023 TIME: 2:52 PM PATIENT IDENTITY VERIFICATION COMPLETED USING TWO (2) IDENTIFIERS: Name and Date of confirmed by patient verbally. FALL SCREENING: Has the patient had 2 falls in the last year or 1 fall with injury or currently using an Ambulatory Assistive Device (Walker, Cane, Wheelchair, Crutches, etc.)? No PATIENT GENDER DATA: Male PATIENT RELEVANT IMPLANT DATA REVIEWED: Yes RADIOLOGY DEPARTMENT: General X-ray: Exam(s) Completed: Pelvis X-Ray: Pelvis with Hip Right PERIPHERAL IV DATA: Not applicable SIGNED BY: RT Saadia(R) October 07, 2023 2:52 PM documented in this encounter [facility] 10-01-2023 History of Presen t illness Narrative Episode Visit Count: 11 Therapist That Will Accept/Oversee The Plan Of Care: Trevor Choi PT, DPT. Start of Care Date: 07/02/23 Onset Date: 02/16/23 Plan of Care Certification Date: 09/24/23 Next Certification Due Date: 10/29/23 Patient Identified by Name and Date of : Yes REHABILITATION AND SPORTS THERAPY PHYSICAL THERAPY TREATMENT NOTE ASSESSMENT: Atilio Barr tolerated the session with no issues. He demonstrated improvements in R Foot musculature tightness. The patient will continue to benefit from ongoing skilled physical therapy to progress toward set goals. PLAN FOR NEXT VISIT: Return to strengthening and gross loading of the R foot intrinsic and extrinsic musculature. SUBJECTIVE: Pt. reports today the R Foot doesn't hurt as bad; states he just completed stretches and strengthening before PT session, wanting to work on the soft tissue. Pain: Pain Pain Level: 3 Pain Location: Heel - Right (R Arch.) Description: Dull, Aching Post Treatment Pain Post Treatment Pain Level: Better Post Treatment Pain Location: Heel - Right Post Treatment Symptoms: Feels more loose. OBJECTIVE MEASURES WITH LEVEL OF FUNCTION: Tissue restriction in R Plantar Fascia and Arch - decreased pain/sxs following manual. TREATMENT: Manual Therapy: 1: IaSTM to R Plantar Fascia: Push to tolerance. 2: Manual R Plantar Splay: Push to tolerance. 3: Passive Stretch of the Invertors: 6 Bouts of 30 sec. 4: CFM to R Plantar Fascia: Push to tolerance. 5: R Big toe plantar fascia stretch with active release: 6 Bouts. Skilled Intervention: Manual skills to improve joint mobility, ROM, and decrease pain. Utilized anatomy knowledge of the therapist, and assessment of patient's response to intervention. Billing Manual TherapyTreatment Minutes: 28 Skilled Treatment Time Minutes (timed and untimed codes): 28 Total Session Time (minutes): 28 Session Start Time : 170 Session Stop Time : 173 Trevor Choi PT documented in this encounter [facility] 09-24-2023 History of Presen t illness Narrative Episode Visit Count: 10 Therapist That Will Accept/Oversee The Plan Of Care: Trevor Choi PT, DPT. Start of Care Date: 07/02/23 Onset Date: 02/16/23 Plan of Care Certification Date: 09/24/23 Next Certification Due Date: 10/29/23 Patient Identified by Name and Date of : Yes REHABILITATION AND SPORTS THERAPY PHYSICAL THERAPY TREATMENT NOTE ASSESSMENT: Atilio Barr tolerated the session with decreased symptoms. He demonstrated improvements in R Plantar tightness and less pain during ambulation following session. The patient will continue to benefit from ongoing skilled physical therapy to progress toward set goals. PLAN FOR NEXT VISIT: Progress gross loading of the R foot intrinsic and extrinsic musculature; manual PRN. SUBJECTIVE: Pt. reports earlier this week there were a couple days where the pain was decreased and he was feeling good; today patient reports the back to higher level pain and it started to hurt again. Pain: Pain Pain Level: 6 Pain Location: Heel - Right Description: Burning Post Treatment Pain Post Treatment Pain Level: Better Post Treatment Pain Location: Heel - Right OBJECTIVE MEASURES WITH LEVEL OF FUNCTION: Tender at the mid arch of the R Plantar Fascia w/ CFM. TREATMENT: Manual Therapy: 1: IaSTM to R Plantar Fascia & R Calf Muscles/Achilles Tendon: Push to tolerance. 2: Manual R Plantar Splay: Push to tolerance. 3: Passive Stretch of the Invertors: 6 Bouts of 30 sec. 4: CFM to R Plantar Fascia: Push to tolerance. 5: R Big toe plantar fascia stretch with active release: 6 Bouts. Skilled Intervention: Manual skills to improve joint mobility, ROM, and decrease pain. Utilized anatomy knowledge of the therapist, and assessment of patient's response to intervention. Billing Manual TherapyTreatment Minutes: 30 Skilled Treatment Time Minutes (timed and untimed codes): 30 Total Session Time (minutes): 30 Session Start Time : 1702 Session Stop Time : 1732 Trevor Choi PT, DPT. documented in this encounter [facility] 09-11-2023 History of Presen t illness Narrative Episode Visit Count: 9 Therapist That Will Accept/Oversee The Plan Of Care: Trevor Choi PT, DPT. Start of Care Date: 07/02/23 Onset Date: 02/16/23 Plan of Care Certification Date: 09/24/23 Next Certification Due Date: 10/29/23 Patient Identified by Name and Date of : Yes REHABILITATION AND SPORTS THERAPY PHYSICAL THERAPY PROGRESS REPORT PLAN OF CARE UPDATE: Assessment: Atilio Barr demonstrates improvement in flexibility and strength.Patient reports [id number] improvement in pain intensity and pain frequency and duration.He has progressed toward goals. Patient continues to present with impairments in ADL's, flexibility, independence in exercise, overall function, soft tissue healing, symptom management, and tissue tenderness that interfere with sleeping, weight bearing, physical activities, recreational activities, walking in the community, driving .Current prognosis is Good due to: current objective clinical presentation, positive past response to therapy, within-session changes, Prognosis may be limited due to occupational demands .He will benefit from continued skilled therapy services to meet the updated goals for this plan of care as noted below. Goals for Episode of Care:UPDATED on 09/11/23. Goals for Episode of Care: created on 07/02/23 through 10/23/23 [place] in home exercise program. (MET per patient) Patient will decrease pain rating by 2 points to meet minimal clinical important difference for numeric pain rating scale. (Progressing Towards) Patient will demonstrate increased in R Ankle/Foot strength to 5/5 during manual muscle testing in order to improve function for home management tasks, leisure / recreation skills, light functional tasks, prior functional tasks, and work tasks. (MET) Perform prolonged walking and standing with decreased report of symptoms/pain in 4-6 weeks. (Progressing Towards) Perform occupational tasks & demands without pain/sxs. (Progressing Towards) Sleep through night without pain/symptoms. (Progressing Towards) Patient will report decreased symptoms/pain first thing in the A.M. (Progressing Towards) Patient Goals: Decrease pain, return to prior functional level Planned Interventions, Frequency, and Duration: 1x/week, 5 weeks Total Number of Visits Planned: 5 Patient to be seen for Therapeutic exercise (10185), Neuromuscular re-education (26962), Manual therapy (28979), Therapeutic activities (13365), Self-fdc management (73676), Gait Training (57962), Patient/Family/Caregiver Education, Body Mechanics Training PLAN FOR NEXT VISIT: Progress gross loading of the R foot intrinsic and extrinsic musculature; manual stretching and IaSTM as needed. SUBJECTIVE: Pt. reports the R Heel hurts; not as bad as it was before, I think it is making improvement, but not where I want it to be. Patient states he has good and bad days with it. Functional Limitations: sleeping, weight bearing, physical activities, recreational activities, walking in the community, driving Pain: Pain Pain Level: 5 Pain Location: Heel - Right (And the R Arch.) Description: Burning, Stabbing Post Treatment Pain Post Treatment Pain Level: Better Post Treatment Pain Location: Heel - Right PROMIS Scales Higher is Better 09/11/2023 09/04/2023 08/13/2023 Phys Func - Score - 41 (mild dysfunction) - Phys Func - Percentile - 18 % - Self-Eff Symptom - Score 41 (Average) - 35 (Low) Self-Eff Symptom - Percentile 18 % - 7 % T-scores: mean of general population = 50. 5 points is clinically meaningfully difference Percentiles provide an indication of how the patient's score ranks in relation to the general population. Higher percentile rankings indicate better function/quality of life. 50th percentile is the average of the general population and indicates half of respondents had a worse score. OBJECTIVE MEASURES WITH LEVEL OF FUNCTION: Ankle Observations R Ankle Palpation Tenderness: Plantar fascia R Ankle Palpation Tenderness Comments: Medial Plantar aspect of calcaneous. LE Flexibility R Gastrocnemius Flexibility: Good L Gastrocnemius Flexibility: Good LE Strength R Ankle Dorsiflexion (L4): 5/5 R Ankle Plantar Flexion: 5/5 R Ankle Inversion: 5/5 R Ankle Eversion: 5/5 R Great Toes Extension (L5, S1): 5/5 Gait Weight Bearing Status: FWB Gait: Independent Gait Device: None Gait Observation: R Foot Slight Supination. TREATMENT: Therapeutic Exercise: 1: Ankle DF/PF: 2x15, PurpTB. 2: Ankle INV/EV: 2x15, PurpTB. 3: Plantar Fascia Stretch: 2x30 4: Progress Check & Objective Measures Collected, Discussion about overall POC.* Skilled Intervention: Patient was educated in proper exercise technique and purpose for exercises. Reviewed and educated patient on additions/changes for home exercise program as above (*). Skilled judgment was used in selection of appropriate interventions. Provided written instruction for home exercise program to facilitate proper performance and compliance. Correct performance of therapeutic exercises was facilitated with verbal, visual, and tactile cuing. Manual Therapy: 1: IaSTM to R Plantar Fascia & R Calf Muscles/Achilles Tendon: Push to tolerance. 2: Manual R Plantar Splay: Push to tolerance. 3: Passive Stretch of the Invertors: 6 Bouts of 30 sec. Skilled Intervention: Manual skills to improve joint mobility, ROM, and decrease pain. Utilized anatomy knowledge of the therapist, and assessment of patient's response to intervention. Self-Jail Management: 1: *Discussion and recommendations of proper athletic shoes in regards to patients diagnosis; patient is currently wearing stiff [employer] shoes; discussed importance of a shoe that has characteristics such as wider toe box, stability, comfortable, laceup athletic shoes that allow for controlled motion and support throughout. Handout given & explained. Skilled Intervention: Skilled judgment in the selection of proper modification for activity of daily living/home management based on clinical presentation, deficits, and needs. Provided written instruction for shoe recommendations to facilitate proper performance and compliance. Reviewed patient specific diagnosis in relation to activities of daily living/home management. Activity progression based on professional judgement. Billing Therapeutic Exercise Treatment Minutes: 23 Manual TherapyTreatment Minutes: 16 Self-Care/Home Management Treatment Minutes: 3 Skilled Treatment Time Minutes (timed and untimed codes): 42 Total Session Time (minutes): 42 Session Start Time : 744 Session Stop Time : 826 Trevor Choi PT documented in this encounter [facility] 09-04-2023 History of Presen t illness Narrative Program_ID:[id number] Access Code: [email or web address] URL: [email or web address] Date: 09-04-2023 Prepared By: Trevor Choi Program Notes Exercises - Seated Plantar Fascia Mobilization with Small Ball - x daily - 7 x weekly - - - Seated Plantar Fascia Stretch - 1-3 x daily - 4-5 x weekly - 2-3 - - Long Sitting Calf Stretch with Strap - 1-3 x daily - 4-5 x weekly - 2-3 - - Towel Scrunches - 1-3 x daily - 4-5 x weekly - 2-3 - 10-15 - Ankle Dorsiflexion with Resistance - 1-2 x daily - 4 x weekly - 2-3 - 10-15 - Seated Ankle Plantarflexion with Resistance - 1-3 x daily - 4-5 x weekly - 2-3 - 10-15 - Standing Heel Raises - 2-3 x daily - 7 x weekly - 2 - 10 - Toe Raises with Counter Support - 2-3 x daily - 7 x weekly - 2 - 10 Program_ID:[id number] Access Code: [email or web address] URL: [email or web address] Date: 09-04-2023 Prepared By: Trevor Choi Program Notes Exercises - Seated Plantar Fascia Mobilization with Small Ball - x daily - 7 x weekly - - - Seated Plantar Fascia Stretch - 1-3 x daily - 4-5 x weekly - 2-3 - - Long Sitting Calf Stretch with Strap - 1-3 x daily - 4-5 x weekly - 2-3 - - Towel Scrunches - 1-3 x daily - 4-5 x weekly - 2-3 - 10-15 - Ankle Dorsiflexion with Resistance - 1-2 x daily - 4 x weekly - 2-3 - 10-15 - Seated Ankle Plantarflexion with Resistance - 1-3 x daily - 4-5 x weekly - 2-3 - 10-15 - Standing Heel Raises - 1 x daily - 7 x weekly - 2 - 10 - Toe Raises with Counter Support - 1 x daily - 7 x weekly - 2 - 10 Episode Visit Count: 8 Therapist That Will Accept/Oversee The Plan Of Care: Trevor Choi, PT, DPT. Start of Care Date: 07/02/23 Onset Date: 02/16/23 Plan of Care Certification Date: 08/13/23 Next Certification Due Date: 09/24/23 Patient Identified by Name and Date of : Yes REHABILITATION AND SPORTS THERAPY PHYSICAL THERAPY TREATMENT NOTE ASSESSMENT: Atilio Barr tolerated the session with fatigue and expected muscle soreness. He demonstrated difficulty with R calf raises compared to L . The patient will continue to benefit from ongoing skilled physical therapy to progress toward set goals. PLAN FOR NEXT VISIT: PN SUBJECTIVE: Pt reports that he did a lot of driving for a couple of days and his foot was killing him yesterday. Pt states that his foot is feeling better today. Pt states his foot was really painful getting out of bed this morning, but pain has calmed down. Pain: Pain Pain Level: 5 (not bad) Pain Location: Heel - Right Post Treatment Pain Post Treatment Pain Level: Better Post Treatment Pain Location: Heel - Right OBJECTIVE MEASURES WITH LEVEL OF FUNCTION: Minimal soft tissue restrictions in R plantar fascia compared to last session. TREATMENT: Therapeutic Exercise: 1: *Standing CR 2x10 2: On 4 inch step, eccentric heel raises 2x10 B 3: *Toe raises 2x10 4: Prostretch 3x30 seconds RLE in standing 5: Plantar fascia stretch with pillow case 3x30 seconds 6: Longsit soleus stretch 3x30 seconds RLE Skilled Intervention: Patient was educated in proper exercise technique and purpose for exercises. Reviewed and educated patient on additions/changes for home exercise program as above (*). Skilled judgment was used in selection of appropriate interventions. Provided written instruction for home exercise program to facilitate proper performance and compliance. Correct performance of therapeutic exercises was facilitated with verbal and visual cuing. Manual Therapy: 2: Manual R Plantar Splay: Push to tolerance. Skilled Intervention: Manual skills to improve joint mobility, ROM, and decrease pain. Utilized anatomy knowledge of the therapist, and assessment of patient's response to intervention. Billing Therapeutic Exercise Treatment Minutes: 27 Manual TherapyTreatment Minutes: 8 Skilled Treatment Time Minutes (timed and untimed codes): 35 Total Session Time (minutes): 35 Session Start Time : 844 Session Stop Time : 919 STEPHENIE Chopra PT, DPT. documented in this encounter [facility] 08-31-2023 History of Presen t illness Narrative Episode Visit Count: 7 Therapist That Will Accept/Oversee The Plan Of Care: Trevor Choi PT, DPT. Start of Care Date: 07/02/23 Onset Date: 02/16/23 Plan of Care Certification Date: 08/13/23 Next Certification Due Date: 09/24/23 Patient Identified by Name and Date of : Yes REHABILITATION AND SPORTS THERAPY PHYSICAL THERAPY TREATMENT NOTE ASSESSMENT: Atilio Barr tolerated the session with decreased symptoms. He demonstrated difficulty with towel scrunches. The patient will continue to benefit from ongoing skilled physical therapy to progress toward set goals. PLAN FOR NEXT VISIT: Continue with strenghtening as able. SUBJECTIVE: Pt reports that his R foot is still a little sore. Still having stabbing pain, pretty steady. Pain: Pain Pain Level: 6 Pain Location: Heel - Right Description: Stabbing Post Treatment Pain Post Treatment Pain Level: Better Post Treatment Pain Location: Heel - Right OBJECTIVE MEASURES WITH LEVEL OF FUNCTION: Decreased rigidity in R plantar fascia compared to last session. TREATMENT: Therapeutic Exercise: 1: Seated towel scrunch 2x20 (emphasis on using all toes and not just great toe) 2: Seated great toe extension 1x10 3: Longsitting great toe flexion with GTB 2x10 4: Heel raises with 10# kb 2x15 5: Plantar fascia stretch with towel 4x30 seconds (use pillowcase at home) Skilled Intervention: Patient was educated in proper exercise technique and purpose for exercises. Skilled judgment was used in selection of appropriate interventions. Correct performance of therapeutic exercises was facilitated with verbal and visual cuing. Manual Therapy: 1: IaSTM to R Plantar Fascia & R Calf Muscles/Achilles Tendon: Push to tolerance. 2: Manual R Plantar Splay: Push to tolerance. Skilled Intervention: Manual skills to improve joint mobility, ROM, and decrease pain. Utilized anatomy knowledge of the therapist, and assessment of patient's response to intervention. Billing Therapeutic Exercise Treatment Minutes: 24 Manual TherapyTreatment Minutes: 15 Skilled Treatment Time Minutes (timed and untimed codes): 39 Total Session Time (minutes): 39 Session Start Time : 1800 Session Stop Time : 1839 STEPHENIE Chopra PT documented in this encounter [facility] 08-18-2023 History of Presen t illness Narrative Episode Visit Count: 4 Therapist That Will Accept/Oversee The Plan Of Care: Trevor Choi PT, DPT. Start of Care Date: 07/02/23 Onset Date: 02/16/23 Plan of Care Certification Date: 07/02/23 Next Certification Due Date: 08/06/23 Patient Identified by Name and Date of : Yes REHABILITATION AND SPORTS THERAPY PHYSICAL THERAPY TREATMENT NOTE ASSESSMENT: Atilio Barr tolerated the session with decreased symptoms. He demonstrated improvements in pain with IASTM. The patient will continue to benefit from ongoing skilled physical therapy to progress toward set goals. PLAN FOR NEXT VISIT: Toe Elevated Heel Rise; Progress ther-ex as able; manual PRN. SUBJECTIVE: Pt reports that the scraping did wonders last visit. Pt thought he was cured, but is not yet, still having issues. Pt thinks driving and prolonged sitting without foot being elevated cause his symptoms to be worse. Pt states compliance with HEP 3x per day without any complications. Pt icing 3x per day and using frozen water bottle. Pain: Pain Pain Level: 6 Pain Location: Heel - Right Description: Stabbing Frequency: Continuous Post Treatment Pain Post Treatment Pain Level: 3 Post Treatment Pain Location: Heel - Right OBJECTIVE MEASURES WITH LEVEL OF FUNCTION: Decreased tension in plantar fascia after IASTM and STM. TREATMENT: Therapeutic Exercise: 1: Longsit Gastroc Stretch: 4x30 2: Longsit Soleus Stretch: 4x30 3: Plantar fascia stretch with towel 4x30 seconds Skilled Intervention: Patient was educated in proper exercise technique and purpose for exercises. Skilled judgment was used in selection of appropriate interventions. Correct performance of therapeutic exercises was facilitated with verbal and visual cuing. Manual Therapy: 1: IaSTM to R Plantar Fascia & R Calf Muscles/Tendons: Push to tolerance. 2: STM to R plantar fascia x 5 minutes Skilled Intervention: Manual skills to improve joint mobility, ROM, and decrease pain. Utilized anatomy knowledge of the therapist, and assessment of patient's response to intervention. Billing Therapeutic Exercise Treatment Minutes: 15 Manual TherapyTreatment Minutes: 26 Total Session Time (minutes): 41 Session Start Time : 1057 Session Stop Time : 1138 STEPHENIE Chopra PT, DPT. documented in this encounter [facility] 08-13-2023 History of Presen t illness Narrative Episode Visit Count: 3 Therapist That Will Accept/Oversee The Plan Of Care: Trevor Choi PT, DPT. Start of Care Date: 07/02/23 Onset Date: 02/16/23 Plan of Care Certification Date: 07/02/23 Next Certification Due Date: 08/06/23 Patient Identified by Name and Date of : Yes REHABILITATION AND SPORTS THERAPY PHYSICAL THERAPY TREATMENT NOTE ASSESSMENT: Atilio Barr tolerated the session with decreased symptoms and no issues. Patient reported improvements in R Plantar Fascia and arch tightness. The patient will continue to benefit from ongoing skilled physical therapy to progress toward set goals. PLAN FOR NEXT VISIT: Toe Elevated Heel Rise; Progress ther-ex as able; manual PRN. SUBJECTIVE: Pt. states inconsistent symptoms overall the last two weeks; some days are good, some days are bad. Reports driving hurts it the most and then he can barely walk after getting out of the vehicle. Pain: Pain Pain Level: 6 Pain Location: Heel - Right Description: Stabbing Frequency: Continuous Post Treatment Pain Post Treatment Pain Level: Better Post Treatment Pain Location: Foot - Right, Heel - Right OBJECTIVE MEASURES WITH LEVEL OF FUNCTION: Tissue restrictions in R Plantar Fascia and Achilles Tendon. TREATMENT: Therapeutic Exercise: 1: Longsit Gastroc Stretch: 4x30 2: Longsit Soleus Stretch: 4x30 3: Big Toe & Plantar Fascia Stretch: 3x30 4: *Educated on continued importance of HEP completion for lasting effects in patient sxs/pain and how just manual therapy doesn't produce everlasting change/carryover of reduction in sxs. Skilled Intervention: Patient was educated in proper exercise technique and purpose for exercises. Skilled judgment was used in selection of appropriate interventions. Correct performance of therapeutic exercises was facilitated with verbal, visual, and tactile cuing. Patient education as noted. Manual Therapy: 1: IaSTM to R Plantar Fascia & R Calf Muscles/Tendons: Push to tolerance. 2: Manual Flexibility to the R Calf. Skilled Intervention: Manual skills to improve joint mobility, ROM, and decrease pain. Utilized anatomy knowledge of the therapist, and assessment of patient's response to intervention. Billing Therapeutic Exercise Treatment Minutes: 11 Manual TherapyTreatment Minutes: 20 Skilled Treatment Time Minutes (timed and untimed codes): 31 Total Session Time (minutes): 31 Session Start Time : 1800 Session Stop Time : 1830 Trevor Choi PT documented in this encounter [facility] 07-30-2023 History of Presen t illness Narrative Episode Visit Count: 2 Therapist That Will Accept/Oversee The Plan Of Care: Trevor Choi PT, DPT. Start of Care Date: 07/02/23 Onset Date: 02/16/23 Plan of Care Certification Date: 07/02/23 Next Certification Due Date: 08/06/23 Patient Identified by Name and Date of : Yes REHABILITATION AND SPORTS THERAPY PHYSICAL THERAPY TREATMENT NOTE ASSESSMENT: Atilio Barr tolerated the session with fatigue, expected muscle soreness, and no issues. He demonstrated improvements in R Lower Leg & Foot Intrinsic and Extrinsic Strength. The patient will continue to benefit from ongoing skilled physical therapy to progress toward set goals. PLAN FOR NEXT VISIT: Toe Elevated Heel Rise; Progress ther-ex as able; manual PRN. SUBJECTIVE: Pt. reports the R Plantar Fascia continues to get better; states he is still continues to go to the chiropractor for the heel pain; got new inserts for his shoes on Thursday. Patient reports HEP compliance. Pain: Pain Pain Level: 5 Pain Location: Heel - Right Description: Sore Frequency: Continuous Post Treatment Pain Post Treatment Pain Level: Better Post Treatment Pain Location: Foot - Right, Heel - Right OBJECTIVE MEASURES WITH LEVEL OF FUNCTION: Patient struggled with isolated R big toe movement away from digits 2-5. TREATMENT: Therapeutic Exercise: 1: Plantar Fascia Towel Stretch: 2x30 2: Longsit Gastroc Stretch: 2x30 3: Longsit Soleus Stretch: 2x30 4: *Ankle INV/EV, BTB: 2x15. 5: Ankle PF/DF, BTB: 2x15. 6: Big Toe & Plantar Fascia Stretch: 2x30 7: *R Arch Squeezes: 2x1 8: *R Digit ABD: 2x10 9: *R Soleus Raise: 2x20, 15#db on thigh. 10: *Standing Calf Raise w/ Tennis Ball Squeeze: 2x15. 11: R Ankle Rock/DF Mobility to Calf Raise: 2x15. 12: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 Expiration Date V isits Requested Visits Authorized [id number] Closed Auto-Generate d Referral 10/07/2023 11/05/2024 1 1 [facility] for referral (narrative)* Diagnostic Procedure Only (Routine) - Closed Specialty Diagnoses / Procedures Referred By Contac t Referred To Contact XR IMAGING Diagnoses Plantar fasciitis Procedures XR FOOT GENERAL 3V AP/LAT/OBL RIGHT RADEX FOOT COMPLETE MINIMUM 3 VIEWS Oswaldo Schulte MD [address] [place] [address] [place] [address] Referral ID Status Reason Start Date Expiration Date V isits Requested Visits Authorized [id number] Closed Auto-Generate d Referral 03/20/2023 04/18/2024 1 1 [facility] for visit Narrative* Diagnostic Procedure Only (Routine) - Closed Specialty Diagnoses / Procedures Referred By Contac t Referred To Contact XR IMAGING Diagnoses Right hip pain Procedures XR HIP GENERAL 3V PELV/AP/LAT RIGHT RADEX HIP UNILATERAL WITH PELVIS 2-3 VIEWS Oswaldo Schulte MD [address] [place] [address] [place] [address] Referral ID Status Reason Start Date Expiration Date V isits Requested Visits Authorized [id number] Closed Auto-Generate d Referral 10/07/2023 11/05/2024 1 1 [facility] for visit Narrative* Diagnostic Procedure Only (Routine) - Closed Specialty Diagnoses / Procedures Referred By Contac t Referred To Contact XR IMAGING Diagnoses Plantar fasciitis Procedures XR FOOT GENERAL 3V AP/LAT/OBL RIGHT RADEX FOOT COMPLETE MINIMUM 3 VIEWS Oswaldo Schulte MD [address] [place] [address] [place] [address] Referral ID Status Reason Start Date Expiration Date V isits Requested Visits Authorized [id number] Closed Auto-Generate d Referral 03/20/2023 04/18/2024 1 1 [facility] Summary Purpose Family History No Family History Records FoundNo Family History Records FoundNo Family History Records FoundNo Family History Records Found Advance Directives No Advanced Directives Records FoundDocuments on File Type Date Recorded Patient Cardiac Technician Expl anation Advance Directive(s) 11/19/2021 6:50 AM Advance Directive(s) 11/13/2021 9:34 AM Advance Directive(s) 09/01/2016 10:17 AM Advance Directive(s) 08/28/2016 11:03 AM Reason for Referral Specialty Diagnoses / Procedures Referred By Contac t Referred To Contact General Surgery Diagnoses Sebaceous cyst Procedures CONSULT TO GENERAL SURGERY OFFICE/OUTPATIENT [facility] MDM 60-74 MINUTES Geeta Webber PA-C [address] [place] [address] Referral ID Status Reason Start Date Expiration Date V isits Requested Visits Authorized [id number] Closed PCP Requested Referral 04/14/2023 04/13/2024 1 1 Specialty Diagnoses / Procedures Referred By Contac t Referred To Contact [facility] Diagnoses Plantar fasciitis Procedures PT REHAB FOLLOW UP ORDER PT REHAB FOLLOW UP ORDER THERAPEUTIC EXERCISES RE, EA 15 MIN. Oswaldo Schulte MD [address] [place] [address] [facility] [address] [address] Referral ID Status Reason Start Date Expiration Date Visits Requested Visits Authorized [id number] Pending Review PCP Requested Referral Auto-Generate d Referral 07/02/2023 09/30/2023 1 1 Specialty Diagnoses / Procedures Referred By Contac t Referred To Contact [facility] Diagnoses Plantar fasciitis Procedures PT REHAB FOLLOW UP ORDER THERAPEUTIC EXERCISES RE, EA 15 MIN. Pt [facility] [address] [place] [address] [facility] [address] [address] Referral ID Status Reason Start Date Expiration Date Visits Requested Visits Authorized [id number] Pending Review PCP Requested Referral Auto-Generate d Referral 3 12/10/2023 1 1 Specialty Diagnoses / Procedures Referred By Contac t Referred To Contact CT IMAGING Diagnoses Tobacco abuse Procedures CT LUNG SCREEN WO IVCON COMPUTED TOMOGRAPHY THORAX LW DOSE LNG CA SCR Adam- Remigio Mcadams, DRILL PRESS SET UP OPERATOR.EMBROIDERY MACHINE OPERATOR [address] [place] [address] Ct Imaging [facility] Referral ID Status Reason Start Date Expiration Date Visits Requested Visits Authorized [id number] Pending Review Auto-Generat ed Referral 11/20/2023 12/19/2024 1 1 Specialty Diagnoses / Procedures Referred By Contac t Referred To Contact Diagnoses Severe sleep apnea Procedures CONSULT TO SLEEP MEDICINE - ADULT OFFICE/OUTPATIENT [facility] 60 MINUTES Oswaldo Schulte MD [address] [place] [address] Referral ID Status Reason Start Date Expiration Date Visits Requested Visits Authorized [id number] Authorized PCP Requested Referral 10/27/2024 10/27/2025 1 1 Health Concerns Infection Onset Date Last Indicated Resolved Time COVID-19 Rule-Out 01/04/2024 01/04/2024 01/04/2024 7:28 PM EDT Additional Source Comments (unrecognized sect ion and content) No Status Records FoundNo Status Records FoundNo Status Records FoundNo Status Records Found INFORMATION SOURCE (unrecogn ized section and content) DATE CREATED AUTHOR 07/30/2019 [facility] DATE CREATED AUTHOR AUTHOR'S ORGANIZ ATION 04/17/2022 [facility] DATE CREATED AUTHOR AUTHOR'S ORGANIZ ATION 07/12/2024 [facility] DATE CREATED AUTHOR AUTHOR'S ORGANIZ ATION 11/01/2024 [facility] Source Comments (unrecognize d section and content) In the event this informatio n is protected by the Federal Confidentiality of Alcohol and Drug Abuse Patient Records regulations: The Federal rules restrict any use of the information to criminally investigate or prosecute any alcohol or drug abuse patient.[facility] the event this information is protected by the Federal Confidentiality of Alcohol and Drug Abuse Patient Records regulations: The Federal rules restrict any use of the information to criminally investigate or prosecute any alcohol or drug abuse patient.[facility] the event this information is protected by the Federal Confidentiality of Alcohol and Drug Abuse Patient Records regulations: The Federal rules restrict any use of the information to criminally investigate or prosecute any alcohol or drug abuse patient.[facility] the event this information is protected by the Federal Confidentiality of Alcohol and Drug Abuse Patient Records regulations: The Federal rules restrict any use of the information to criminally investigate or prosecute any alcohol or drug abuse patient.[facility] the event this information is protected by the Federal Confidentiality of Alcohol and Drug Abuse Patient Records regulations: The Federal rules restrict any use of the information to criminally investigate or prosecute any alcohol or drug abuse patient.[facility] the event this information is protected by the Federal Confidentiality of Alcohol and Drug Abuse Patient Records regulations: The Federal rules restrict any use of the information to criminally investigate or prosecute any alcohol or drug abuse patient.[facility] the event this information is protected by the Federal Confidentiality of Alcohol and Drug Abuse Patient Records regulations: The Federal rules restrict any use of the information to criminally investigate or prosecute any alcohol or drug abuse patient.[facility] the event this information is protected by the Federal Confidentiality of Alcohol and Drug Abuse Patient Records regulations: The Federal rules restrict any use of the information to criminally investigate or prosecute any alcohol or drug abuse patient.[facility] the event this information is protected by the Federal Confidentiality of Alcohol and Drug Abuse Patient Records regulations: The Federal rules restrict any use of the information to criminally investigate or prosecute any alcohol or drug abuse patient.[facility] the event this information is protected by the Federal Confidentiality of Alcohol and Drug Abuse Patient Records regulations: The Federal rules restrict any use of the information to criminally investigate or prosecute any alcohol or drug abuse patient.[facility] the event this information is protected by the Federal Confidentiality of Alcohol and Drug Abuse Patient Records regulations: The Federal rules restrict any use of the information to criminally investigate or prosecute any alcohol or drug abuse patient.[facility] the event this information is protected by the Federal Confidentiality of Alcohol and Drug Abuse Patient Records regulations: The Federal rules restrict any use of the information to criminally investigate or prosecute any alcohol or drug abuse patient.[facility] the event this information is protected by the Federal Confidentiality of Alcohol and Drug Abuse Patient Records regulations: The Federal rules restrict any use of the information to criminally investigate or prosecute any alcohol or drug abuse patient.[facility] the event this information is protected by the Federal Confidentiality of Alcohol and Drug Abuse Patient Records regulations: The Federal rules restrict any use of the information to criminally investigate or prosecute any alcohol or drug abuse patient.[facility] the event this information is protected by the Federal Confidentiality of Alcohol and Drug Abuse Patient Records regulations: The Federal rules restrict any use of the information to criminally investigate or prosecute any alcohol or drug abuse patient.[facility] the event this information is protected by the Federal Confidentiality of Alcohol and Drug Abuse Patient Records regulations: The Federal rules restrict any use of the information to criminally investigate or prosecute any alcohol or drug abuse patient.[facility] the event this information is protected by the Federal Confidentiality of Alcohol and Drug Abuse Patient Records regulations: The Federal rules restrict any use of the information to criminally investigate or prosecute any alcohol or drug abuse patient.[facility] the event this information is protected by the Federal Confidentiality of Alcohol and Drug Abuse Patient Records regulations: The Federal rules restrict any use of the information to criminally investigate or prosecute any alcohol or drug abuse patient.[facility] Hospital[facility] the event this information is protected by the Federal Confidentiality of Alcohol and Drug Abuse Patient Records regulations: The Federal rules restrict any use of the information to criminally investigate or prosecute any alcohol or drug abuse patient.[facility] HospitalIn the event this information is protected by the Federal Confidentiality of Alcohol and Drug Abuse Patient Records regulations: The Federal rules restrict any use of the information to criminally investigate or prosecute any alcohol or drug abuse patient.[facility] HospitalIn the event this information is protected by the Federal Confidentiality of Alcohol and Drug Abuse Patient Records regulations: The Federal rules restrict any use of the information to criminally investigate or prosecute any alcohol or drug abuse patient.[facility] HospitalIn the event this information is protected by the Federal Confidentiality of Alcohol and Drug Abuse Patient Records regulations: The Federal rules restrict any use of the information to criminally investigate or prosecute any alcohol or drug abuse patient.[facility] HospitalIn the event this information is protected by the Federal Confidentiality of Alcohol and Drug Abuse Patient Records regulations: The Federal rules restrict any use of the information to criminally investigate or prosecute any alcohol or drug abuse patient.[facility] HospitalIn the event this information is protected by the Federal Confidentiality of Alcohol and Drug Abuse Patient Records regulations: The Federal rules restrict any use of the information to criminally investigate or prosecute any alcohol or drug abuse patient.[facility] HospitalIn the event this information is protected by the Federal Confidentiality of Alcohol and Drug Abuse Patient Records regulations: The Federal rules restrict any use of the information to criminally investigate or prosecute any alcohol or drug abuse patient.[facility] HospitalIn the event this information is protected by the Federal Confidentiality of Alcohol and Drug Abuse Patient Records regulations: The Federal rules restrict any use of the information to criminally investigate or prosecute any alcohol or drug abuse patient.[facility] HospitalIn the event this information is protected by the Federal Confidentiality of Alcohol and Drug Abuse Patient Records regulations: The Federal rules restrict any use of the information to criminally investigate or prosecute any alcohol or drug abuse patient.[facility] HospitalIn the event this information is protected by the Federal Confidentiality of Alcohol and Drug Abuse Patient Records regulations: The Federal rules restrict any use of the information to criminally investigate or prosecute any alcohol or drug abuse patient.[facility] HospitalIn the event this information is protected by the Federal Confidentiality of Alcohol and Drug Abuse Patient Records regulations: The Federal rules restrict any use of the information to criminally investigate or prosecute any alcohol or drug abuse patient.[facility] HospitalIn the event this information is protected by the Federal Confidentiality of Alcohol and Drug Abuse Patient Records regulations: The Federal rules restrict any use of the information to criminally investigate or prosecute any alcohol or drug abuse patient.[facility] HospitalIn the event this information is protected by the Federal Confidentiality of Alcohol and Drug Abuse Patient Records regulations: The Federal rules restrict any use of the information to criminally investigate or prosecute any alcohol or drug abuse patient.[facility] HospitalIn the event this information is protected by the Federal Confidentiality of Alcohol and Drug Abuse Patient Records regulations: The Federal rules restrict any use of the information to criminally investigate or prosecute any alcohol or drug abuse patient.[facility] HospitalIn the event this information is protected by the Federal Confidentiality of Alcohol and Drug Abuse Patient Records regulations: The Federal rules restrict any use of the information to criminally investigate or prosecute any alcohol or drug abuse patient.[facility] HospitalIn the event this information is protected by the Federal Confidentiality of Alcohol and Drug Abuse Patient Records regulations: The Federal rules restrict any use of the information to criminally investigate or prosecute any alcohol or drug abuse patient.[facility] HospitalIn the event this information is protected by the Federal Confidentiality of Alcohol and Drug Abuse Patient Records regulations: The Federal rules restrict any use of the information to criminally investigate or prosecute any alcohol or drug abuse patient.[facility] HospitalIn the event this information is protected by the Federal Confidentiality of Alcohol and Drug Abuse Patient Records regulations: The Federal rules restrict any use of the information to criminally investigate or prosecute any alcohol or drug abuse patient.[facility] HospitalIn the event this information is protected by the Federal Confidentiality of Alcohol and Drug Abuse Patient Records regulations: The Federal rules restrict any use of the information to criminally investigate or prosecute any alcohol or drug abuse patient.[facility] HospitalIn the event this information is protected by the Federal Confidentiality of Alcohol and Drug Abuse Patient Records regulations: The Federal rules restrict any use of the information to criminally investigate or prosecute any alcohol or drug abuse patient.[facility] HospitalIn the event this information is protected by the Federal Confidentiality of Alcohol and Drug Abuse Patient Records regulations: The Federal rules restrict any use of the information to criminally investigate or prosecute any alcohol or drug abuse patient.[facility] HospitalIn the event this information is protected by the Federal Confidentiality of Alcohol and Drug Abuse Patient Records regulations: The Federal rules restrict any use of the information to criminally investigate or prosecute any alcohol or drug abuse patient.[facility] HospitalIn the event this information is protected by the Federal Confidentiality of Alcohol and Drug Abuse Patient Records regulations: The Federal rules restrict any use of the information to criminally investigate or prosecute any alcohol or drug abuse patient.[facility] HospitalIn the event this information is protected by the Federal Confidentiality of Alcohol and Drug Abuse Patient Records regulations: The Federal rules restrict any use of the information to criminally investigate or prosecute any alcohol or drug abuse patient.[facility] HospitalIn the event this information is protected by the Federal Confidentiality of Alcohol and Drug Abuse Patient Records regulations: The Federal rules restrict any use of the information to criminally investigate or prosecute any alcohol or drug abuse patient.[facility] HospitalIn the event this information is protected by the Federal Confidentiality of Alcohol and Drug Abuse Patient Records regulations: The Federal rules restrict any use of the information to criminally investigate or prosecute any alcohol or drug abuse patient.[facility] Reason for Visit (unrecogniz ed section and content) Reason Comments Elevated PSA Reason Comments Sinus Problem drainage, sore throa t, cough and headache x 2 days Reason Comments Cough Nasal, chest congest ion Pappas, x2 wks. Reason Comments Cough Congestion, fatigue x 1 month Reason Comments new DME comapny for Cpap supplies Reason Comments Physical Reason Comments Electronic Communication Reason Comments Results Reason Comments Pain Reason Comments Recheck Boil in groin area n ot improving Reason Comments Follow Up Incision and drainag e of abscess to right groin (simple) Reason Comments Consult Sebacous cyst Specialty Diagnoses / Procedures Referred By Contac t Referred To Contact General Surgery Diagnoses Sebaceous cyst Procedures CONSULT TO GENERAL SURGERY OFFICE/OUTPATIENT NEW HIGH MDM 60-74 MINUTES Geeta Webber PA-C [address] [place] [address] Referral ID Status Reason Start Date Expiration Date V isits Requested Visits Authorized [id number] Closed PCP Requested Referral 04/14/2023 04/13/2024 1 1 Reason Comments Follow Up Follow-up right groi n abscess, patient feels it has returned. Reason Comments Patient Question Reason Comments New Pain Specialty Diagnoses / Procedures Referred By Mindi t Referred To Contact Podiatry Diagnoses Plantar fasciitis Procedures CONSULT TO PODIATRY OFFICE/OUTPATIENT [facility] 60-74 MINUTES Oswaldo Schulte MD [address] [place] [address] Referral ID Status Reason Start Date Expiration Date V isits Requested Visits Authorized [id number] Closed PCP Requested Referral 06/29/2023 06/28/2024 1 1 Reason Comments PT Eval Specialty Diagnoses / Procedures Referred By Contac t Referred To Contact [facility] Diagnoses Plantar fasciitis Procedures CONSULT TO PHYSICAL THERAPY PHYSICAL THERAPY EVALUATION HIGH COMPLEX 45 MINS Oswaldo Schulte MD [address] [place] [address] [facility] [place] [address] [place] [address] Referral ID Status Reason Start Date Expiration Date V isits Requested Visits Authorized [id number] Closed Auto-Generate d Referral 06/25/2023 10/18/2023 1 1 Reason Comments Physical Therapy Specialty Diagnoses / Procedures Referred By Contac t Referred To Contact PHYSICAL THERAPY Diagnoses Plantar fasciitis Procedures PT REHAB FOLLOW UP ORDER PT REHAB FOLLOW UP ORDER THERAPEUTIC EXERCISES RE, EA 15 MIN. Oswaldo Schulte MD [address] [place] [address] [facility] [address] [place] [address] Referral ID Status Reason Start Date Expiration Date Visits Requested Visits Authorized [id number] Authorized PCP Requested Referral Auto-Generate d Referral 07/03/2023 10/02/2023 8 8 Reason Comments PT Progress Note Specialty Diagnoses / Procedures Referred By Contac t Referred To Contact PHYSICAL THERAPY Diagnoses Plantar fasciitis Procedures PT REHAB FOLLOW UP ORDER PT REHAB FOLLOW UP ORDER THERAPEUTIC EXERCISES RE, EA 15 MIN. Oswaldo Schulte MD [address] [place] [address] Pt [facility] [address] [place] [address] Referral ID Status Reason Start Date Expiration Date V isits Requested Visits Authorized [id number] Closed PCP Requested Referral Auto-Generated Referral 07/03/2023 10/02/2023 8 8 Specialty Diagnoses / Procedures Referred By Contac t Referred To Contact PHYSICAL THERAPY Diagnoses Plantar fasciitis Procedures PT REHAB FOLLOW UP ORDER THERAPEUTIC EXERCISES RE, EA 15 MIN. Oswaldo Schulte MD [address] [place] [address] [facility] [address] [place] [address] Referral ID Status Reason Start Date Expiration Date Visits Requested Visits Authorized [id number] Authorized PCP Requested Referral Auto-Generate d Referral 3 11/19/2023 10 [address] Specialty Diagnoses / Procedures Referred By Contac t Referred To Contact CT IMAGING Diagnoses Tobacco abuse Encounter for screening for lung cancer Procedures CT LUNG SCREEN WO IVCON COMPUTED TOMOGRAPHY THORAX LW DOSE LNG CA GOKUL [place]- Remigio Mcadams APRN.EMBROIDERY MACHINE OPERATOR [address] [place] [address] [facility] Referral ID Status Reason Start Date Expiration Date V isits Requested Visits Authorized [id number] Closed Auto-Generate d Referral 10/28/2023 12/27/2023 1 1 Reason Comments Cough Congestion, runny no se, ST x1 day Reason Comments Cough Chest congestion, ru nny nose x6 days Reason Comments Rash Left buttock & down left leg X 1 wk Reason Comments ER F/U Reason Comments ER Discharge Summary Reason Comments Cough Reason Comments Chest Congestion head congestion, cou gh x 10 days Reason Comments Physical Care Teams (unrecognized sec tion and content) Piano Tuner Relationship Specialty Start Date End Date Oswaldo Schulte MD [address] [place] [address] PCP - General Family Practice 01/05/14 Piano Tuner Relationship Specialty Start Date End Date Oswaldo Schulte MD [address] [place] [address] PCP - General Family Medicine 01/05/14 Piano Tuner Relationship Specialty Start Date End Date Oswaldo Schulte MD [address] [place] [address] [place] [address] PCP - General Family Medicine 01/05/14 Piano Tuner Relationship Specialty Start Date End Date Oswaldo Schulte MD [address] [place] [address] [place] [address] PCP - General Family Medicine 01/05/14 Piano Tuner Relationship Specialty Start Date End Date Oswaldo Schulte MD [address] [place] [address] [place] [address] PCP - General Family Medicine 01/05/14 Piano Tuner Relationship Specialty Start Date End Date Oswaldo Schulte MD [address] [place] [address] [place] [address] PCP - General Family Medicine 01/05/14 Piano Tuner Relationship Specialty Start Date End Date Oswaldo Schulte MD [address] [place] [address] PCP - General Family Medicine 01/05/14 Piano Tuner Relationship Specialty Start Date End Date Oswaldo Schulte MD [address] [facility] [place] [address] PCP - General Family Medicine 01/05/14 Piano Tuner Relationship Specialty Start Date End Date Oswaldo Schulte MD [address] [place] [address] PCP - General Family Medicine 01/05/14 Piano Tuner Relationship Specialty Start Date End Date Oswaldo Schulte MD [address] [place] [address] PCP - General Family Medicine 01/05/14 Piano Tuner Relationship Specialty Start Date End Date Oswaldo Schulte MD [address] [place] [address] PCP - General Family Medicine 01/05/14 Piano Tuner Relationship Specialty Start Date End Date Oswaldo Schulte MD [address] [place] [address] PCP - General Family Medicine 01/05/14 Piano Tuner Relationship Specialty Start Date End Date Oswaldo Schulte MD [address] [place] [address] PCP - General Family Medicine 01/05/14 Piano Tuner Relationship Specialty Start Date End Date Oswaldo Schulte MD [address] [place] [address] PCP - General Family Medicine 01/05/14 Piano Tuner Relationship Specialty Start Date End Date Oswaldo Schulte MD [address] [place] [address] PCP - General Family Medicine 01/05/14 Piano Tuner Relationship Specialty Start Date End Date Oswaldo Schulte MD [address] [place] [address] PCP - General Family Medicine 01/05/14 Piano Tuner Relationship Specialty Start Date End Date Oswaldo Schulte MD [address] [place] [address] PCP - General Family Medicine 01/05/14 Piano Tuner Relationship Specialty Start Date End Date Oswaldo Schulte MD [address] [place] [address] PCP - General Family Medicine 01/05/14 Piano Tuner Relationship Specialty Start Date End Date Oswaldo Schulte MD [address] [place] [address] PCP - General Family Medicine 01/05/14 Piano Tuner Relationship Specialty Start Date End Date Oswaldo Schulte MD [address] [place] [address] PCP - General Family Medicine 01/05/14 Piano Tuner Relationship Specialty Start Date End Date Oswaldo Schulte MD [address] [place] [address] PCP - General Family Medicine 01/05/14 Piano Tuner Relationship Specialty Start Date End Date Oswaldo Schulte MD [address] [place] [address] PCP - General Family Medicine 01/05/14 Piano Tuner Relationship Specialty Start Date End Date Oswaldo Schulte MD [address] [place] [address] PCP - General Family Medicine 01/05/14 Piano Tuner Relationship Specialty Start Date End Date Oswaldo Schulte MD [address] [place] [address] PCP - General Family Medicine 01/05/14 Marya Chirinos APRN.EMBROIDERY MACHINE OPERATOR [address] [place] [address] [employer] And Vegetable Inspector Family Medicine 09/24/24 Geeta Webber PA-C [address] [place] [address] [employer] Vegetable Inspector Family Medicine 09/24/24 Piano Tuner Relationship Specialty Start Date End Date Oswaldo Schulte MD [address] [place] [address] PCP - General Family Medicine 01/05/14 Marya Chirinos APRN.EMBROIDERY MACHINE OPERATOR [address] [place] [address] [employer] And Vegetable Inspector Family Medicine 09/24/24 Geeta Webber PA-C [address] [place] [address] Fruit And Vegetable Inspector Family Medicine 09/24/24 Piano Tuner Relationship Specialty Start Date End Date Oswaldo Schulte MD [address] [place] [address] PCP - General Family Medicine 01/05/14 Marya Chirinos APRN.EMBROIDERY MACHINE OPERATOR [address] [place] [address] Fruit And Vegetable Inspector Family Medicine 09/24/24 Geeta Webber PA-C [address] [place] [address] [facility] 09/24/24 FOR RECORDS PERTAINING TO PATIENTS WHO ARE OR HAVE BEEN ENROLLED IN A CHEMICAL DEPENDENCY/SUBSTANCEABUSE PROGRAM, SOME INFORMATION MAY BE OMITTED. This clinical summary was aggregated from multiple sources. Caution should be exercised in using it in the provision of clinical care. This summary normalizes information from multiple sources, and as a consequence, information in this document may materially change the coding, format and clinical context of patient data. In addition, data may be omitted in some cases. CLINICAL DECISIONS SHOULD BE BASED ON THE PRIMARY CLINICAL RECORDS. [facility]. provides no warranty or guarantee of the accuracy or completeness of information in this document.
[2025-06-25 12:00] VITALS: BP 132/93; PULSE 67; RESP 23; O2SAT 98
[2025-06-25 13:00] VITALS: BP 119/64; PULSE 64; RESP 17; O2SAT 98
[2025-06-25 13:44] LABS: Troponin T High Sens 2 HR 7 ng/L (<=22)
[2025-06-25 14:37] VITALS: BP 122/77; PULSE 63; RESP 22; TEMP 36.9; O2SAT 96
== END 2025-06-25 14:37 | disposition home or self-care (01) ==
PROVIDERS: Emergency Provider Emergency Medicine; PCP Family Medicine; Visit Provider Emergency Medicine
DX: S20.214A Contusion of middle front wall of thorax, initial encounter (principal); W20.8XXA Other cause of strike by thrown, projected or falling object, initial encounter; Y93.B9 Activity, other involving muscle strengthening exercises; Z87.891 Personal history of nicotine dependence
CPT/HCPCS: 71250; 80048; 84484; 85025; 93005; 96374; 96375; 99285; A4216; J2405